=== PATIENT | male | born 1940 | race Caucasian/White ===

== ENCOUNTER → 2019-08-05 | Outpatient (CLI) | payer MEDICARE ==
--- NOTE | 2019-08-05 13:53 | US ---
EXAMINATION TYPE: US carotid duplex BILAT DATE OF EXAM: 08/05/2019 COMPARISON: NONE CLINICAL HISTORY: R42 dizziness, R09.89 Other specified symptoms and. no h/o stroke EXAM MEASUREMENTS: RIGHT: Peak Systolic Velocity (PSV) cm/sec ----- Right CCA: 50.2 ----- Right ICA: 87.6 ----- Right ECA: 77.1 ICA/CCA ratio: 1.7 RIGHT: End Diastole cm/sec ----- Right CCA: 9.1 ----- Right ICA: 19.5 ----- Right ECA: 9.9 LEFT: Peak Systolic Velocity (PSV) cm/sec ----- Left CCA: 52.8 ----- Left ICA: 80.1 ----- Left ECA: 90.6 ICA/CCA ratio: 1.5 LEFT: End Diastole cm/sec ----- Left CCA: 4.6 ----- Left ICA: 13.7 ----- Left ECA: 9.1 VERTEBRALS (direction of flow): Right Vertebral: Antegrade Left Vertebral: Antegrade Rhythm: Normal patient kept talking throughout exam Ruvalcaba scale images show mild eccentric plaque at carotid bulb level but are seen on the right. Velocit y measurements and ratios remain within normal limits and visualized portion of both internal carotid arteries. IMPRESSION: No hemodynamically significant stenosis in either internal carotid artery. Criteria for Assigning % of Stenosis / Diameter reduction (Estimation based on the indirect measurements of the internal carotid artery velocities (ICA PSV). 1. Normal (no stenosis)=ICA PSV < 125 cm/s: ratio < 2.0: ICA EDV<40 cm/s. 2. Less than 50% stenosis=ICA PSV < 125 cm/s: ratio < 2.0: ICA EDV<40 cm/s. 3. 50 to 69% stenosis=ICA PSV of 125 to 230 cm/s: ration 2.0 ? 4.0: ICA EDV 40-100 cm/s. 4. Greater than 70% stenosis to near occlusion= ICA PSV > 230 cm/s: ratio > 4.0: ICA EDV > 100 cm/s. 5. Near occlusion= ICA PSV velocities may be low or undetectable: variable ratio and ICA EDV. 6. Total occlusion=unable to detect flow.
--- NOTE | 2019-08-05 13:55 | CT ---
EXAMINATION TYPE: CT brain wo con DATE OF EXAM: 08/05/2019 HISTORY: dizziness CT DLP: 809.2 mGycm. Automated Exposure Control for Dose Reduction was Utilized. TECHNIQUE: CT scan of the head is performed without contrast. COMPARISON: None. FINDINGS: There is no acute intracranial hemorrhage or midline shift identified. There is diffuse v entricular and sulcal prominence consistent with diffuse cerebral and cerebellar atrophy. Low occipit al craniectomy defect is present. Posterior fossa 8 mm calcification noted. Some low attenuation in t he deep and periventricular white matter. Some bilateral basal ganglia calcification. The globes are intact and the visualized sinuses are clear. IMPRESSION: No acute intracranial hemorrhage or midline shift. There is fairly moderate diffuse cer ebellar and cerebral atrophy and mild chronic small vessel ischemic change with posterior lower surgi bridget change noted. Correlate the latter clinically.
== END | disposition home or self-care (01) ==
LOC: RADUSMAIN 12:48
PROVIDERS: ATTEND Family Medicine
DX: G31.9 Degenerative disease of nervous system, unspecified (principal); R90.89 Other abnormal findings on diagnostic imaging of central nervous system; R09.89 Other specified symptoms and signs involving the circulatory and respiratory systems; R42 Dizziness and giddiness
CPT/HCPCS: 70450; 93880

== ENCOUNTER 2023-03-01 07:03 | Emergency (ER) | payer MEDICARE ==
[2023-03-01] MEDS ORDERED: LIDOCAINE 2% GLYDO JELLY 11 ML APPL MUCOUS MEM ONE (07:16)
--- NOTE | 2023-03-01 07:34 | ED ---
General Adult HPI - General Chief complaint: ENT Stated complaint: live bug in ear Time Seen by Provider: 03/01/23 07:16 Source: patient Mode of arrival: ambulatory Limitations: no limitations - History of Present Illness Initial comments: Dictation was produced using [employer] dictation software. please excuse any grammatical, word or spelling errors. Chief Complaint: 82-year-old male with Bug in his left ear History of Present Illness: Patient is an 82-year-old male. He woke up this morning to let his pets out. He states that he stood outside of the bug flew into his left ear. He tried to have his family member remove it however was unsuccessful. The ROS documented in this emergency department record has been reviewed and confirmed by me. Those systems with pertinent positive or negative responses have been documented in the HPI. All other systems are other negative and/or noncontributory. - Related Data Allergies Allergy/AdvReac Type Severity Reaction Status Date / Time No Known Allergies Allergy Verified 03/01/23 07:13 Review of Systems ROS Statement: Those systems with pertinent positive or pertinent negative responses have been documented in the HPI. ROS Other: All systems not noted in ROS Statement are negative. Past Medical History Past Medical History: Hypertension History of Any Multi-Drug Resistant Organisms: None Reported Past Surgical History: No Surgical Hx Reported Past Psychological History: No Psychological Hx Reported Smoking Status: Never smoker Past Alcohol Use History: None Reported Past Drug Use History: None Reported General Exam - General Exam Comments Initial Comments: PHYSICAL EXAM: General Impression: Alert and oriented x3, not in acute distress HEENT: Normocephalic atraumatic, extra-ocular movements intact, pupils equal and reactive to light bilaterally, mucous membranes moist, insect in left ear Cardiovascular: Heart regular rate and rhythm Chest: Able to complete full sentences, no retractions, no tachypnea Musculoskeletal: no peripheral edema Motor: no focal deficits noted Neurological: CN II-XII grossly intact, no focal motor or sensory deficits noted Skin: Intact with no visualized rashes Psych: Normal affect and mood Limitations: no limitations Medical Decision Making - Medical Decision Making Was pt. sent in by a medical professional or institution (, PA, MAILROOM SUPERVISOR, urgent care, hospital, or residential...) When possible be specific @ -No Did you speak to anyone other than the patient for history (EMS, parent, family, police, friend...)? What history was obtained from this source @ -No Did you review nursing and triage notes (agree or disagree)? Why? @ -I reviewed and agree with nursing and triage notes Were old charts reviewed (outside hosp., previous admission, EMS record, old EKG, old radiological studies, urgent care reports/EKG's, residential records)? Report findings @ -No old charts were reviewed Differential Diagnosis (chest pain, altered mental status, abdominal pain women, abdominal pain men, vaginal bleeding, musculoskeletal, weakness, fever, dyspnea, syncope, headache, dizziness, GI bleed, back pain, seizure, CVA, palpatations, mental health)? @ -not applicable EKG interpreted by me (3pts min.). @ -None done X-rays interpreted by me (1pt min.). @ -None done CT interpreted by me (1pt min.). @ -None done U/S interpreted by me (1pt. min.). @ -None done What testing was considered but not performed or refused? (CT, X-rays, U/S, labs)? Why? @ -None What meds were considered but not given or refused? Why? @ -None Did you discuss the management of the patient with other professionals (professionals i.e. , PA, MAILROOM SUPERVISOR, lab, RT, psych nurse, hospice social worker, house servant, teacher, correctional officer chief, case packer and sealer)? Give summary @ -No Was smoking cessation discussed for >3mins.? @ -No Was critical care preformed (if so, how long)? @ -No Were there social determinants of health that impacted care today? How? (Homelessness, low income, unemployed, alcoholism, drug addiction, transportation, low edu. Level, literacy, decrease access to med. care, group home, rehab)? @ -No Was there de-escalation of care discussed even if they declined (Discuss DNR or withdrawal of care, Hospice)? DNR status @ -No What co-morbidities impacted this encounter? (DM, HTN, Smoking, COPD, CAD, Cancer, CVA, ARF, Chemo, Hep., AIDS, mental health diagnosis, sleep apnea, morbid obesity)? @ -None Was patient admitted / discharged? Hospital course, mention meds given and route, prescriptions, significant lab abnormalities, going to OR and other pertinent info. @ -82 Year-old male with left external ear insect. Viscous Lidocaine was injected through a catheter in the left ear to paralyze the insect. It was flushed and bug was removed. Patient discharged. Undiagnosed new problem with uncertain prognosis? @ -No Drug Therapy requiring intensive monitoring for toxicity (Heparin, Nitro, Insulin, Cardizem)? @ -No Were any procedures done? @ -No Diagnosis/symptom? Acute, or Chronic, or Acute on Chronic? Uncomplicated (without systemic symptoms) or Complicated (systemic symptoms)? @ - Left ear insect Side effects of treatment? @ -No Exacerbation, Progression, or Severe Exacerbation? @ -No Poses a threat to life or bodily function? How? (Chest pain, [place], [place], pneumonia, PE, COPD, DKA, ARF, appy, cholecystitis, CVA, Diverticulitis, Homicidal, Suicidal, threat to staff... and all critical care pts) @ -No Disposition Clinical Impression: Foreign body in ear Disposition: HOME SELF-CARE Condition: Good Instructions (If sedation given, give patient instructions): Ear Foreign Body (ED) Is patient prescribed a controlled substance at d/c from ED?: No Referrals: Luis Alberto Prince [Primary Care Provider] - 1-2 days Time of Disposition: 08:02
[2023-03-01 08:20] VITALS: BP 181/98; PULSE 58; RESP 18; TEMP 97.6
== END 2023-03-01 08:19 | disposition home or self-care (01) ==
LOC: EC 07:03
DX: T16.2XXA Foreign body in left ear, initial encounter (principal); I10 Essential (primary) hypertension; W45.8XXA Other foreign body or object entering through skin, initial encounter
CPT/HCPCS: 69200; 99283

== ENCOUNTER 2023-11-07 15:36 | Inpatient (IN) | payer MEDICARE ==
--- NOTE | 2023-11-07 16:13 | ED ---
General Adult HPI - General Stated complaint: Tremor Time Seen by Provider: 11/07/23 15:42 Source: patient, family, RN notes reviewed, old records reviewed Mode of arrival: ambulatory - History of Present Illness Initial comments: 83-year-old male presenting with fever chills. Urinary incontinence, urinary frequency. Symptoms began today. Patient had mild confusion which is resolved. No chest pain or abdominal pain. No cough. No focal numbness or weakness. - Related Data Home Medications Medication Instructions Recorded Confirmed Atorvastatin Calcium [Lipitor] 40 mg PO HS 11/07/23 11/07/23 Chlorthalidone [Hygroton] 12.5 mg PO DAILY 11/07/23 11/07/23 Docusate [Colace] 100 - 300 mg PO DAILY PRN 11/07/23 11/07/23 Furosemide [Lasix] 40 mg PO DAILY 11/07/23 11/07/23 Loratadine [Claritin] 10 mg PO DAILY 11/07/23 11/07/23 Metoprolol Tartrate [Lopressor] 50 mg PO BID 11/07/23 11/07/23 Sennosides/Docusate Sodium [Senna 2 - 4 tab PO DAILY PRN 11/07/23 11/07/23 Plus 8.6-50 mg Tablet] Warfarin [Coumadin] 7.5 mg PO DAILY 11/07/23 11/07/23 bisacodyL [Dulcolax] 5 - 15 mg PO DAILY PRN 11/07/23 11/07/23 lisinopriL [Zestril] 20 mg PO HS 11/07/23 11/07/23 Allergies Allergy/AdvReac Type Severity Reaction Status Date / Time No Known Allergies Allergy Verified 11/07/23 16:26 Review of Systems ROS Statement: Those systems with pertinent positive or pertinent negative responses have been documented in the HPI. ROS Other: All systems not noted in ROS Statement are negative. Past Medical History Past Medical History: Hypertension History of Any Multi-Drug Resistant Organisms: None Reported Past Surgical History: No Surgical Hx Reported Past Psychological History: No Psychological Hx Reported Smoking Status: Never smoker Past Alcohol Use History: None Reported Past Drug Use History: None Reported General Exam General appearance: alert, in no apparent distress Head exam: Present: atraumatic, normocephalic Eye exam: Present: normal appearance, other (Right pupil postsurgical) Neck exam: Present: normal inspection. Absent: tenderness, meningismus Respiratory exam: Present: normal lung sounds bilaterally. Absent: respiratory distress, wheezes, rales Cardiovascular Exam: Present: regular rate, normal rhythm GI/Abdominal exam: Present: soft. Absent: distended, tenderness, rebound Extremities exam: Present: normal inspection, normal capillary refill. Absent: pedal edema Neurological exam: Present: alert, oriented X3, CN II-XII intact. Absent: motor sensory deficit Psychiatric exam: Present: normal affect, normal mood Skin exam: Present: warm, dry, intact. Absent: cyanosis, diaphoretic Course Vital Signs 11/07/23 11/07/23 16:02 16:49 Temperature 102.4 F H 100.6 F H Pulse Rate 81 62 Respiratory 18 16 Rate Blood Pressure 128/64 132/77 O2 Sat by Pulse 95 96 Oximetry Medical Decision Making - Medical Decision Making Was pt. sent in by a medical professional or institution (, PA, ARMOR RECONNAISSANCE VEHICLE DRIVER, urgent care, hospital, or [facility]...) When possible be specific @ -No Did you speak to anyone other than the patient for history (EMS, parent, family, police, friend...)? What history was obtained from this source @ -No Did you review nursing and triage notes (agree or disagree)? Why? @ -I reviewed and agree with nursing and triage notes Were old charts reviewed (outside hosp., previous admission, EMS record, old EKG, old radiological studies, urgent care reports/EKG's, [facility] records)? Report findings @ -No old charts were reviewed Differential Weakness: Hypoglycemia, shock, sepsis, hyponatremia, anemia, infection, LA, ETOH, adverse medicine reaction, overdose, stroke, this is not meant to be an all-inclusive list. EKG interpreted by me (3pts min.). @Sinus rhythm rate of 89, PA interval 88, QRS duration 101, QTc [address] segment elevation, tremor artifact limiting assessment. X-rays interpreted by me (1pt min.). @Chest x-ray concerning for developing infiltrate CT interpreted by me (1pt min.). @ -None done U/S interpreted by me (1pt. min.). @ -None done What testing was considered but not performed or refused? (CT, X-rays, U/S, labs)? Why? @ -None What meds were considered but not given or refused? Why? @ -None Did you discuss the management of the patient with other professionals (professionals i.e. , PA, ARMOR RECONNAISSANCE VEHICLE DRIVER, lab, RT, psych nurse, high school social studies teacher, paraprofessional education assistant, teacher, staff air defense officer, case mgr)? Give summary @[facility] Was smoking cessation discussed for >3mins.? @ -No Was critical care preformed (if so, how long)? @ yes 35 min Were there social determinants of health that impacted care today? How? (Homelessness, low income, unemployed, alcoholism, drug addiction, transportat ion, low edu. Level, literacy, decrease access to med. care, correction, rehab)? @ -No Was there de-escalation of care discussed even if they declined (Discuss DNR or withdrawal of care, Hospice)? DNR status @ -No What co-morbidities impacted this encounter? (DM, HTN, Smoking, COPD, CAD, Cancer, CVA, ARF, Chemo, Hep., AIDS, mental health diagnosis, sleep apnea, morbid obesity)? @ -None Was patient admitted / discharged? Hospital course, mention meds given and route, prescriptions, significant lab abnormalities, going to OR and other pertinent info. @ -83-year-old male with fever, confusion, urinary frequency and urgency. Patient does have urinary tract infection, nitrate positive. Urine culture and blood cultures pending. He has an elevated white blood cell count of 21,000. Lactic is 3.5. He started on antibiotics awaiting culture results. He is covered for both pneumonia and UTI. I believe that his primary issue is urinary tract infection at this time. He will be admitted to [facility]. Undiagnosed new problem with uncertain prognosis? @ -No Drug Therapy requiring intensive monitoring for toxicity (Heparin, Nitro, Insulin, Cardizem)? @ -No Were any procedures done? @ -No Diagnosis/symptom? @UTI, pneumonia, sepsis Acute, or Chronic, or Acute on Chronic? @ -Default Uncomplicated (without systemic symptoms) or Complicated (systemic symptoms)? @ -Default Side effects of treatment? @ -No Exacerbation, Progression, or Severe Exacerbation? @ -No Poses a threat to life or bodily function? How? (Chest pain, [place], [place], pneumonia, PE, COPD, DKA, ARF, appy, cholecystitis, CVA, Diverticulitis, Homicidal, Suicidal, threat to staff... and all critical care pts) @ -[Yes, sepsis - Lab Data Result diagrams: 11/07/23 15:55 11/07/23 16:26 Lab Results 11/07/23 11/07/23 11/07/23 Range/Units 15:55 16:26 16:26 WBC 21.0 H (3.8-10.6) k/uL RBC 4.33 (4.30-5.90) m/uL Hgb 12.8 L (13.0-17.5) gm/dL Hct 39.6 (39.0-53.0) % MCV 91.4 (80.0-100.0) fL MCH 29.7 (25.0-35.0) pg MCHC 32.4 (31.0-37.0) g/dL RDW 15.5 (11.5-15.5) % Plt Count 226 (150-450) k/uL MPV 8.6 Neutrophils % 79 % Lymphocytes % 13 % Monocytes % 6 % Eosinophils % 0 % Basophils % 0 % Neutrophils # 16.5 H (1.3-7.7) k/uL Lymphocytes # 2.7 (1.0-4.8) k/uL Monocytes # 1.3 H (0-1.0) k/uL Eosinophils # 0.1 (0-0.7) k/uL Basophils # 0.1 (0-0.2) k/uL PT 18.3 H (10.0-12.5) sec INR 1.8 H (<1.2) APTT 34.7 H (22.0-30.0) sec Sodium 133 L (137-145) mmol/L Potassium 4.5 (3.5-5.1) mmol/L Chloride 103 (98-107) mmol/L Carbon Dioxide 18 L (22-30) mmol/L Anion Gap 12 mmol/L BUN 29 H (9-20) mg/dL Creatinine 1.05 (0.66-1.25) mg/dL Est GFR (CKD-EPI)AfAm 76 (>60 ml/min/1.73 sqM) Est GFR (CKD-EPI)NonAf 66 (>60 ml/min/1.73 sqM) Glucose 131 H (74-99) mg/dL Plasma Lactic Acid Richie (0.7-2.0) mmol/L Calcium 9.0 (8.4-10.2) mg/dL Magnesium 1.7 (1.6-2.3) mg/dL Total Bilirubin 1.3 (0.2-1.3) mg/dL AST 32 (17-59) U/L ALT 20 (4-49) U/L Alkaline Phosphatase 46 (38-126) U/L Total Protein 7.7 (6.3-8.2) g/dL Albumin 4.1 (3.5-5.0) g/dL Urine Color Urine Appearance (Clear) Urine pH (5.0-8.0) Ur Specific [place] (1.001-1.035) Urine Protein (Negative) Urine Glucose (UA) (Negative) Urine Ketones (Negative) Urine Blood (Negative) Urine Nitrite (Negative) Urine Bilirubin (Negative) Urine Urobilinogen (<2.0) mg/dL Ur Leukocyte Esterase (Negative) Urine RBC (0-5) /hpf Urine WBC (0-5) /hpf Urine Bacteria (None) /hpf Urine Mucus (None) /hpf 11/07/23 11/07/23 Range/Units 16:26 16:26 WBC (3.8-10.6) k/uL RBC (4.30-5.90) m/uL Hgb (13.0-17.5) gm/dL Hct (39.0-53.0) % MCV (80.0-100.0) fL MCH (25.0-35.0) pg MCHC (31.0-37.0) g/dL RDW (11.5-15.5) % Plt Count (150-450) k/uL MPV Neutrophils % % Lymphocytes % % Monocytes % % Eosinophils % % Basophils % % Neutrophils # (1.3-7.7) k/uL Lymphocytes # (1.0-4.8) k/uL Monocytes # (0-1.0) k/uL Eosinophils # (0-0.7) k/uL Basophils # (0-0.2) k/uL PT (10.0-12.5) sec INR (<1.2) APTT (22.0-30.0) sec Sodium (137-145) mmol/L Potassium (3.5-5.1) mmol/L Chloride (98-107) mmol/L Carbon Dioxide (22-30) mmol/L Anion Gap mmol/L BUN (9-20) mg/dL Creatinine (0.66-1.25) mg/dL Est GFR (CKD-EPI)AfAm (>60 ml/min/1.73 sqM) Est GFR (CKD-EPI)NonAf (>60 ml/min/1.73 sqM) Glucose (74-99) mg/dL Plasma Lactic Acid Richie 3.5 H* (0.7-2.0) mmol/L Calcium (8.4-10.2) mg/dL Magnesium (1.6-2.3) mg/dL Total Bilirubin (0.2-1.3) mg/dL AST (17-59) U/L ALT (4-49) U/L Alkaline Phosphatase (38-126) U/L Total Protein (6.3-8.2) g/dL Albumin (3.5-5.0) g/dL Urine Color Yellow Urine Appearance Cloudy (Clear) Urine pH 6.0 (5.0-8.0) Ur Specific [place] 1.025 (1.001-1.035) Urine Protein 2+ H (Negative) Urine Glucose (UA) Negative (Negative) Urine Ketones Negative (Negative) Urine Blood Moderate H (Negative) Urine Nitrite Positive (Negative) Urine Bilirubin Negative (Negative) Urine Urobilinogen <2.0 (<2.0) mg/dL Ur Leukocyte Esterase Large H (Negative) Urine RBC 30 H (0-5) /hpf Urine WBC 117 H (0-5) /hpf Urine Bacteria Rare H (None) /hpf Urine Mucus Moderate H (None) /hpf Critical Care Time Critical Care Time: Yes Total Critical Care Time: 35 Disposition Clinical Impression: Urinary tract infection, Sepsis Disposition: ADMITTED IP TO THIS HOSP Condition: Stable Is patient prescribed a controlled substance at d/c from ED?: No Referrals: Luis Alberto Prince [Primary Care Provider] - 1-2 days Time of Disposition: 17:44
[2023-11-07] MEDS: ACETAMINOPHEN TAB 500 MG TAB PO STA (16:42)
[2023-11-07] MEDS: SODIUM CHLORIDE 0.9% 1,000 ML IV STA (16:43)
[2023-11-07 16:50] LABS: Basophils # (A) 0.1 k/uL (0-0.2); Basophils % (A) 0 %; Eosinophils # (A) 0.1 k/uL (0-0.7); Eosinophils % (A) 0 %; HCT 39.6 % (39.0-53.0); HGB 12.8 gm/dL (13.0-17.5); Lymphocytes # (A) 2.7 k/uL (1.0-4.8); Lymphocytes % (A) 13 %; MCH 29.7 pg (25.0-35.0); MCHC 32.4 g/dL (31.0-37.0); MCV 91.4 fL (80.0-100.0); Mean Platelet Volume 8.6; Monocytes # (A) 1.3 k/uL (0-1.0); Monocytes % (A) 6 %; Neutrophils # (A) 16.5 k/uL (1.3-7.7); Neutrophils % (A) 79 %; Platelet Count 226 k/uL (150-450); RBC 4.33 m/uL (4.30-5.90); RDW 15.5 % (11.5-15.5)
[2023-11-07 16:58] LABS: ALT 20 U/L (4-49); AST 32 U/L (17-59); African American GFR (CKD) 76 (>60 ml/min/1.73 sqM); Albumin 4.1 g/dL (3.5-5.0); Alkaline Phosphatase 46 U/L (38-126); Anion Gap 12 mmol/L; Blood Urea Nitrogen 29 mg/dL (9-20); Carbon Dioxide 18 mmol/L (22-30); Chloride 103 mmol/L (98-107); Glucose 131 mg/dL (74-99); INR 1.8 (<1.2); Magnesium 1.7 mg/dL (1.6-2.3); Non-African American GFR(CKD) 66 (>60 ml/min/1.73 sqM); Partial Thromboplastin Time 34.7 sec (22.0-30.0); Potassium 4.5 mmol/L (3.5-5.1); Prothrombin Time 18.3 sec (10.0-12.5); Sodium 133 mmol/L (137-145); Total Bilirubin 1.3 mg/dL (0.2-1.3); Total Protein 7.7 g/dL (6.3-8.2)
[2023-11-07 17:12] LABS: Appearance,Urine Cloudy (Clear); Bacteria,Urine Rare /hpf; Bilirubin,Urine Negative (Negative); Blood,Urine Moderate (Negative); Color,Urine Yellow; Glucose,Urine (UA) Negative (Negative); Ketones,Urine Negative (Negative); Leukocyte Esterase,Urine Large (Negative); Mucus,Urine Moderate /hpf; Nitrite,Urine Positive (Negative); Protein,Urine 2+ (Negative); RBC,Urine 30 /hpf (0-5); Specific Gravity,Urine 1.025 (1.001-1.035); Urobilinogen,Urine <2.0 mg/dL (<2.0); WBC,Urine 117 /hpf (0-5)
--- NOTE | 2023-11-07 17:25 | XR ---
EXAMINATION TYPE: XR chest 2V DATE OF EXAM: 11/07/2023 COMPARISON: None INDICATION: Weakness TECHNIQUE: Frontal and lateral views of the chest are obtained. FINDINGS: The heart size is normal. The pulmonary vasculature is normal. Mild infiltrates through the right upper lobe. Correlate for atelectasis and pneumonia. Some linear o pacities at the left base. Correlate for subsegmental atelectasis.. IMPRESSION: 1. Right upper lobe infiltrate. Correlate for atelectasis or pneumonia. 2. Subsegmental atelectasis left base
[2023-11-07] MEDS ORDERED: ACETAMINOPHEN TAB 325 MG TAB PO PRN (17:44)
[2023-11-07] MEDS ORDERED: NALOXONE 0.4 MG/ML 1 ML VIAL IV PRN (17:44)
[2023-11-07] MEDS: AZITHROMYCIN 500 MG in SODIUM CHLORIDE 0.9% 250 ML IVPB STA (18:27)
[2023-11-07] MEDS: SODIUM CHLORIDE 0.9% 1,000 ML IV SCH (18:28)
[2023-11-08] MEDS ORDERED: WARFARIN 7.5 MG TAB PO SCH (00:03)
[2023-11-08] MEDS ORDERED: DOCUSATE 100 MG CAP PO PRN (00:03)
[2023-11-08] MEDS ORDERED: WARFARIN 1.25 MG TAB PO ONE (00:15)
[2023-11-08] MEDS ORDERED: WARFARIN 7.5 MG TAB PO ONE (00:15)
[2023-11-08] MEDS: METOPROLOL TARTRATE 50 MG TAB PO SCH (00:31)
[2023-11-08] MEDS: ATORVASTATIN 40 MG TAB PO SCH (00:31)
[2023-11-08] MEDS: WARFARIN 2 MG TAB PO ONE (00:31)
[2023-11-08 12:35] LABS: INR 1.53 sec (0.93-1.11); Prothrombin Time 16.1 sec (9.9-11.9)
[2023-11-08] MEDS: CHLORTHALIDONE 25 MG TAB PO SCH (13:17)
[2023-11-08] MEDS: lisinopriL 20 MG TAB PO SCH (13:17)
--- NOTE | 2023-11-08 13:51 | P.HPIM ---
History of Present Illness H&P Date: 11/08/23 History of present illness; patient is a 83-year-old gentleman past medical history significant for hypertension, hyperlipidemia, atrial fibrillation who presented to the ER for increasing confusion fever and chills. Patient was all right 1 day back when he started noticing that he was having fevers associated with chills. Family also noted the patient was getting more confused. Patient was also having increased frequency of urination with incontinence. There was no complaint of hematuria. Denied any burning micturition. Denied any nausea or vomiting. There was no complaint of chest pain or shortness of breath. Denied any lightheaded or dizziness. Because of the symptoms, patient presented the ER Initial lab work done in the ER showed WBC 21, hemoglobin 12.8, platelet count 226, sodium 133, potassium 4.5, BUN 29, creatinine 1.05, lactate 3.5, UA done showed urine nitrite positive, leukocyte esterase large amount, urine WBC 117 Influenza A not detected Influenza B not detected RSV not detected COVID-19 detected EKG done in the ER showed heart rate of 89 , no ST segment elevation or depression seen, no T-wave inversions seen. Chest x-ray done in the ER right upper lobe infiltrate Patient admitted to internal medicine service REVIEW OF SYSTEMS: CONSTITUTIONAL: As mentioned HPI HEENT: No recent visual problems or hearing problems. Denied any sore throat. CARDIOVASCULAR: No chest pain, orthopnea, PND, no palpitations, no syncope. PULMONARY: No shortness of breath, no cough, no hemoptysis. GASTROINTESTINAL: No diarrhea, no nausea, no vomiting, no abdominal pain. NEUROLOGICAL: No headaches, no weakness, no numbness. HEMATOLOGICAL: Denies any bleeding or petechiae. GENITOURINARY: Denies any burning micturition, frequency, or urgency. MUSCULOSKELETAL/RHEUMATOLOGICAL: Denies any joint pain, swelling, or any muscle pain. ENDOCRINE: Denies any polyuria or polydipsia. The rest of the 14-point review of systems is negative. PHYSICAL EXAMINATION: GENERAL: The patient is alert and oriented x3, not in any acute distress. Well developed, well nourished. HEENT: Pupils are round and equally reacting to light. EOMI. No scleral icterus. No conjunctival pallor. Normocephalic, atraumatic. No pharyngeal erythema. No thyromegaly. CARDIOVASCULAR: S1 and S2 present. No murmurs, rubs, or gallops. PULMONARY: Chest is clear to auscultation, no wheezing or crackles. ABDOMEN: Soft, nontender, nondistended, normoactive bowel sounds. No palpable organomegaly. MUSCULOSKELETAL: No joint swelling or deformity. EXTREMITIES: No cyanosis, clubbing, or pedal edema. NEUROLOGICAL: Gross neurological examination did not reveal any focal deficits. SKIN: No rashes. Assessment and plan UTI Sepsis Lactic acidosis COVID-19 positive Hypertension hyperlipidemia Chronic Coumadin use Monitor vital signs Monitor CBC Monitor CMP Continue telemetry monitoring Ordered blood cultures Ordered urine cultures continue IV fluids continue IV Rocephin Continue COVID-19 isolation Consult ID Resume Home meds Labs and medication were reviewed.. Continue same treatment. Continue with symptomatic treatment. Resume home medication. Monitor labs and vitals. DVT and GI prophylaxis. Further recommendations as per clinical course of the patient Dictation was produced using [employer] dictation software. please excuse any grammatical, word or spelling errors. Past Medical History Past Medical History: Hyperlipidemia, Hypertension Additional Past Medical History / Comment(s): CABGx4 2009, mechanical valvue Mitral History of Any Multi-Drug Resistant Organisms: None Reported Past Surgical History: No Surgical Hx Reported Additional Past Surgical History / Comment(s): Brain tumor removal at age 21, artificial valve 2011, bypass 2009, Spinal shunt Past Anesthesia/Blood Transfusion Reactions: No Reported Reaction Past Psychological History: No Psychological Hx Reported Smoking Status: Never smoker Past Alcohol Use History: None Reported Past Drug Use History: None Reported Medications and Allergies Home Medications Medication Instructions Recorded Confirmed Type Atorvastatin Calcium [Lipitor] 40 mg PO HS 11/07/23 11/07/23 History Chlorthalidone [Hygroton] 12.5 mg PO DAILY 11/07/23 11/07/23 History Docusate [Colace] 100 - 300 mg PO DAILY PRN 11/07/23 11/07/23 History Loratadine [Claritin] 10 mg PO DAILY 11/07/23 11/07/23 History Metoprolol Tartrate [Lopressor] 50 mg PO BID 11/07/23 11/07/23 History Sennosides/Docusate Sodium [Senna 2 - 4 tab PO DAILY PRN 11/07/23 11/07/23 History Plus 8.6-50 mg Tablet] Warfarin [Coumadin] 7.5 mg PO HS 11/07/23 11/07/23 History bisacodyL [Dulcolax] 5 - 15 mg PO DAILY PRN 11/07/23 11/07/23 History lisinopriL [Zestril] 20 mg PO DAILY 11/07/23 11/07/23 History Allergies Allergy/AdvReac Type Severity Reaction Status Date / Time No Known Allergies Allergy Verified 11/07/23 16:26 Physical Exam Vitals: Vital Signs Temp Pulse Pulse Resp BP BP Pulse Ox 11/08/23 08:00 98.7 F 96 17 150/67 95 11/08/23 02:00 98.3 F 81 153/65 96 11/07/23 21:13 60 18 117/64 97 11/07/23 20:00 97.6 F 65 118/55 100 11/07/23 19:30 62 18 115/60 96 11/07/23 17:54 98.4 F 66 16 114/56 94 L 11/07/23 17:47 99.1 F 63 18 114/56 95 11/07/23 16:49 100.6 F H 62 16 132/77 96 11/07/23 16:02 102.4 F H 81 18 128/64 95 Intake and Output 11/07/23 11/08/23 11/08/23 22:59 06:59 14:59 Output Total 300 Balance -300 Output: Urine 300 Other: Voiding Method Urinal Incontinent External Catheter # Voids 2 Weight 74.843 kg 74.843 kg Results CBC & Chem 7: 11/07/23 15:55 11/07/23 16:26 Labs: Abnormal Lab Results - Last 24 Hours (Table) 11/07/23 11/07/23 11/07/23 Range/Units 15:55 16:26 16:26 WBC 21.0 H (3.8-10.6) k/uL Hgb 12.8 L (13.0-17.5) gm/dL Neutrophils # 16.5 H (1.3-7.7) k/uL Monocytes # 1.3 H (0-1.0) k/uL PT 18.3 H (10.0-12.5) sec INR 1.8 H (<1.2) APTT 34.7 H (22.0-30.0) sec Sodium 133 L (137-145) mmol/L Carbon Dioxide 18 L (22-30) mmol/L BUN 29 H (9-20) mg/dL Glucose 131 H (74-99) mg/dL Plasma Lactic Acid Richie (0.7-2.0) mmol/L Urine Protein (Negative) Urine Blood (Negative) Ur Leukocyte Esterase (Negative) Urine RBC (0-5) /hpf Urine WBC (0-5) /hpf Urine Bacteria (None) /hpf Urine Mucus (None) /hpf SARS-CoV-2 (PCR) (Not Detectd) 11/07/23 11/07/23 11/07/23 Range/Units 16:26 16:26 16:26 WBC (3.8-10.6) k/uL Hgb (13.0-17.5) gm/dL Neutrophils # (1.3-7.7) k/uL Monocytes # (0-1.0) k/uL PT (10.0-12.5) sec INR (<1.2) APTT (22.0-30.0) sec Sodium (137-145) mmol/L Carbon Dioxide (22-30) mmol/L BUN (9-20) mg/dL Glucose (74-99) mg/dL Plasma Lactic Acid Richie 3.5 H* (0.7-2.0) mmol/L Urine Protein 2+ H (Negative) Urine Blood Moderate H (Negative) Ur Leukocyte Esterase Large H (Negative) Urine RBC 30 H (0-5) /hpf Urine WBC 117 H (0-5) /hpf Urine Bacteria Rare H (None) /hpf Urine Mucus Moderate H (None) /hpf SARS-CoV-2 (PCR) Detected A (Not Detectd) Thrombosis Risk Factor Assmnt - Choose All That Apply Any of the Below Risk Factors Present?: No Other Risk Factors: No Each Risk Factor Represents 3 Points: Age 75 years or older Other congenital or acquired thrombophilia - If yes, enter type in comment: No Thrombosis Risk Factor Assessment Total Risk Factor Score: 3 Thrombosis Risk Factor Assessment Level: Very Low Risk
[2023-11-08] MEDS: WARFARIN 3 MG TAB PO ONE (17:56)
--- NOTE | 2023-11-08 22:31 | P.CONS ---
History of Present Illness - Reason for Consult Consult date: 11/08/23 - History of Present Illness Patient is a 83-year-old male past medical history significant for hypertension hyperlipidemia coronary artery disease mechanical mitral valve and also have a history of brain tumor patient was brought into the hospital for evaluation of fever chills urinary incontinence and frequency and this patient symptom started the day of presentation to the hospital patient was noted to be mildly confused patient denies having any headache or URI symptoms no chest pain or shortness of breath no cough no nausea vomiting abdominal pain or any diarrhea patient on presentation to the hospital did have a temperature of 102.4 F patient was not tachycardic hypotensive or hypoxic and no need for supplemental oxygen he did have a white count 21,000 with a left shift creatinine 1.05 lactic acid was elevated urine was positive patient also tested positive for COVID-19 influenza and RSV was negative chest x-ray right upper lobe infiltrate correlate for atelectasis or pneumonia patient has been started on Rocephin 2 g daily admit to the hospital infectious disease was consulted for further management of antibiotic therapy Past Medical History Past Medical History: Hyperlipidemia, Hypertension Additional Past Medical History / Comment(s): CABGx4 2009, mechanical valvue Mitral History of Any Multi-Drug Resistant Organisms: None Reported Past Surgical History: No Surgical Hx Reported Additional Past Surgical History / Comment(s): Brain tumor removal at age 21, artificial valve 2011, bypass 2009, Spinal shunt Past Anesthesia/Blood Transfusion Reactions: No Reported Reaction Past Psychological History: No Psychological Hx Reported Smoking Status: Never smoker Past Alcohol Use History: None Reported Past Drug Use History: None Reported Medications and Allergies Home Medications Medication Instructions Recorded Confirmed Type Atorvastatin Calcium [Lipitor] 40 mg PO HS 11/07/23 11/07/23 History Chlorthalidone [Hygroton] 12.5 mg PO DAILY 11/07/23 11/07/23 History Docusate [Colace] 100 - 300 mg PO DAILY PRN 11/07/23 11/07/23 History Loratadine [Claritin] 10 mg PO DAILY 11/07/23 11/07/23 History Metoprolol Tartrate [Lopressor] 50 mg PO BID 11/07/23 11/07/23 History Sennosides/Docusate Sodium [Senna 2 - 4 tab PO DAILY PRN 11/07/23 11/07/23 History Plus 8.6-50 mg Tablet] Warfarin [Coumadin] 7.5 mg PO HS 11/07/23 11/07/23 History bisacodyL [Dulcolax] 5 - 15 mg PO DAILY PRN 11/07/23 11/07/23 History lisinopriL [Zestril] 20 mg PO DAILY 11/07/23 11/07/23 History Allergies Allergy/AdvReac Type Severity Reaction Status Date / Time No Known Allergies Allergy Verified 11/07/23 16:26 Physical Exam Vitals: Vital Signs Temp Pulse Pulse Resp BP BP Pulse Ox 11/08/23 08:00 98.7 F 96 17 150/67 95 11/08/23 02:00 98.3 F 81 153/65 96 11/07/23 21:13 60 18 117/64 97 11/07/23 20:00 97.6 F 65 118/55 100 11/07/23 19:30 62 18 115/60 96 11/07/23 17:54 98.4 F 66 16 114/56 94 L 11/07/23 17:47 99.1 F 63 18 114/56 95 11/07/23 16:49 100.6 F H 62 16 132/77 96 11/07/23 16:02 102.4 F H 81 18 128/64 95 Intake and Output 11/07/23 11/08/23 11/08/23 22:59 06:59 14:59 Output Total 300 Balance -300 Output: Urine 300 Other: Voiding Method Urinal Incontinent External Catheter # Voids 2 Weight 74.843 kg 74.843 kg Results CBC & Chem 7: 11/07/23 15:55 11/07/23 16:26 Labs: Abnormal Lab Results - Last 24 Hours (Table) 11/07/23 11/07/23 11/07/23 Range/Units 15:55 16:26 16:26 WBC 21.0 H (3.8-10.6) k/uL Hgb 12.8 L (13.0-17.5) gm/dL Neutrophils # 16.5 H (1.3-7.7) k/uL Monocytes # 1.3 H (0-1.0) k/uL PT 18.3 H (10.0-12.5) sec INR 1.8 H (<1.2) APTT 34.7 H (22.0-30.0) sec Sodium 133 L (137-145) mmol/L Carbon Dioxide 18 L (22-30) mmol/L BUN 29 H (9-20) mg/dL Glucose 131 H (74-99) mg/dL Plasma Lactic Acid Richie (0.7-2.0) mmol/L Urine Protein (Negative) Urine Blood (Negative) Ur Leukocyte Esterase (Negative) Urine RBC (0-5) /hpf Urine WBC (0-5) /hpf Urine Bacteria (None) /hpf Urine Mucus (None) /hpf SARS-CoV-2 (PCR) (Not Detectd) 11/07/23 11/07/23 11/07/23 Range/Units 16:26 16:26 16:26 WBC (3.8-10.6) k/uL Hgb (13.0-17.5) gm/dL Neutrophils # (1.3-7.7) k/uL Monocytes # (0-1.0) k/uL PT (10.0-12.5) sec INR (<1.2) APTT (22.0-30.0) sec Sodium (137-145) mmol/L Carbon Dioxide (22-30) mmol/L BUN (9-20) mg/dL Glucose (74-99) mg/dL Plasma Lactic Acid Richie 3.5 H* (0.7-2.0) mmol/L Urine Protein 2+ H (Negative) Urine Blood Moderate H (Negative) Ur Leukocyte Esterase Large H (Negative) Urine RBC 30 H (0-5) /hpf Urine WBC 117 H (0-5) /hpf Urine Bacteria Rare H (None) /hpf Urine Mucus Moderate H (None) /hpf SARS-CoV-2 (PCR) Detected A (Not Detectd) Assessment and Plan Plan: 1patient presented hospital with sepsis in this patient noted to have a fever elevated white count sources including antibiotic positive UA and urinary symptom suggestive of symptomatic UTI likely from enteric gram-negative pathogen 2-patient also tested positive for COVID-19 however the patient did not have significant respiratory symptoms and chest x-ray has been negative not behaving as COVID-19 pneumonia and treatment is mostly supportive 3did have abnormality on the chest x-ray but no respiratory symptoms no hypoxemia possible atelectasis rather than pneumonia 4Rocephin 2 g daily should provide adequate antibiotic coverage for underlying UTI We will follow on clinical condition and cultures to further adjust medication if needed Thank you for this consultation we will follow the patient along with you Dictation was produced using [employer] dictation software. please excuse any grammatical, word or spelling errors. Time with Patient: Greater than 30
[2023-11-09 09:28] LABS: Basophils # (A) 0.04 X 10*3/uL (0.00-0.10); Basophils % (A) 0.3 %; Eosinophils # (A) 0.14 X 10*3/uL (0.04-0.35); Eosinophils % (A) 1.1 %; HGB 11.7 g/dL (13.0-17.0); Lymphocytes % (A) 10.2 %; MCH 29.6 pg (27.0-32.0); MCHC 32.5 g/dL (32.0-37.0); MCV 91.1 FL (80.0-97.0); Mean Platelet Volume 10.7 FL (9.5-12.2); Monocytes % (A) 5.5 %; NRBC Per 100 WBC 0 X 10*3/uL (0.00-0.01); Neutrophils # (A) 10.53 X 10*3/uL (1.80-7.70); Neutrophils % (A) 82.6 %; Platelet Count 178 X 10*3/uL (140-440); RBC 3.95 X 10*6/uL (4.40-5.60); RDW 15.9 % (11.5-14.5); WBC 12.75 X 10*3/uL (4.50-10.00)
[2023-11-09 09:42] LABS: ALT 50 U/L (10-49); AST 166 U/L (14-35); Albumin 3.3 g/dL (3.8-4.9); Albumin/Globulin Ratio 1.18 Ratio (1.60-3.17); Alkaline Phosphatase 38 U/L (41-126); BUN/Creat Ratio 21.33 Ratio (12.00-20.00); Blood Urea Nitrogen 12.8 mg/dL (9.0-27.0); Calcium 8.4 mg/dL (8.7-10.3); Carbon Dioxide 19.6 mmol/L (21.6-31.8); Chloride 103 mmol/L (96-109); Globulin 2.8 g/dL (1.6-3.3); Glucose 93 mg/dL (70-110); Potassium 3.2 mmol/L (3.5-5.5); Sodium 136 mmol/L (135-145); Total Bilirubin 0.5 mg/dL (0.3-1.2); Total Protein 6.1 g/dL (6.2-8.2)
[2023-11-09 10:15] LABS: INR 1.71 sec (0.93-1.11); Prothrombin Time 17.8 sec (9.9-11.9)
[2023-11-09] MEDS: POTASSIUM CHLORIDE ER 20 MEQ TAB.ER PO STA (12:36)
[2023-11-09] MEDS: LACTOBACILLUS ACIDOPHILUS/PECT 1 EACH CAPSULE PO SCH (12:36)
--- NOTE | 2023-11-09 12:57 | P.PN ---
Subjective Progress Note Date: 11/09/23 patient is a 83-year-old gentleman past medical history significant for hypertension, hyperlipidemia, atrial fibrillation who presented to the ER for increasing confusion fever and chills. Patient was all right 1 day back when he started noticing that he was having fevers associated with chills. Family also noted the patient was getting more confused. Patient was also having increased frequency of urination with incontinence. There was no complaint of hematuria. Denied any burning micturition. Denied any nausea or vomiting. There was no complaint of chest pain or shortness of breath. Denied any lightheaded or dizziness. Because of the symptoms, patient presented the ER Initial lab work done in the ER showed WBC 21, hemoglobin 12.8, platelet count 226, sodium 133, potassium 4.5, BUN 29, creatinine 1.05, lactate 3.5, UA done showed urine nitrite positive, leukocyte esterase large amount, urine WBC 117 Influenza A not detected Influenza B not detected RSV not detected COVID-19 detected EKG done in the ER showed heart rate of 89 , no ST segment elevation or depression seen, no T-wave inversions seen. Chest x-ray done in the ER right upper lobe infiltrate Patient admitted to internal medicine service 11/08. Patient seen and examined. Lab work done this morning showed WBC 12.75, hemoglobin 11.7, platelet count 178,. Still complaining general weakness, states he feels better than yesterday REVIEW OF SYSTEMS: CONSTITUTIONAL: No fever, no malaise,. CARDIOVASCULAR: No chest pain, no palpitations, no syncope. PULMONARY: No shortness of breath, no cough, GASTROINTESTINAL: No diarrhea, no nausea, no vomiting, no abdominal pain. NEUROLOGICAL: No headaches, no weakness, PHYSICAL EXAMINATION: GENERAL: The patient is alert and oriented x3, not in any acute distress. Well developed, well nourished. HEENT: Pupils are round and equally reacting to light. EOMI. No scleral icterus. No conjunctival pallor. Normocephalic, atraumatic. No pharyngeal erythema. No thyromegaly. CARDIOVASCULAR: S1 and S2 present. No murmurs, rubs, or gallops. PULMONARY: Chest is clear to auscultation, no wheezing or crackles. ABDOMEN: Soft, nontender, nondistended, normoactive bowel sounds. No palpable organomegaly. MUSCULOSKELETAL: No joint swelling or deformity. EXTREMITIES: No cyanosis, clubbing, or pedal edema. NEUROLOGICAL: Gross neurological examination did not reveal any focal deficits. SKIN: No rashes. Assessment and plan UTI Sepsis Lactic acidosis COVID-19 positive Hypertension hyperlipidemia Chronic Coumadin use Monitor vital signs Monitor CBC Monitor CMP Continue telemetry monitoring Follow-up on blood cultures Follow-up on urine cultures DC fluids continue IV Rocephin Continue COVID-19 isolation ID following Labs and medication were reviewed.. Continue same treatment. Continue with symptomatic treatment. Resume home medication. Monitor labs and vitals. DVT and GI prophylaxis. Further recommendations as per clinical course of the patient Dictation was produced using [employer] dictation software. please excuse any grammatical, word or spelling errors. Objective - Vital Signs Vital signs: Vital Signs Temp 97.9 F 11/09/23 08:00 Pulse 90 11/09/23 08:00 Resp 17 11/09/23 08:00 BP 179/89 11/09/23 08:00 Pulse Ox 95 11/09/23 08:00 FiO2 21 11/09/23 07:54 Intake & Output 11/08/23 11/09/23 11/09/23 18:59 06:59 18:59 Output Total 400 750 Balance -400 -750 Output: Urine 400 750 Other: Voiding Method Incontinent Incontinent Incontinent External Catheter External Catheter External Catheter # Bowel Movements 1 2 - Labs CBC & Chem 7: 11/09/23 03:54 11/09/23 03:54 Labs: Abnormal Lab Results - Last 24 Hours (Table) 11/08/23 11/09/23 Range/Units 06:26 03:54 WBC 12.75 H (4.50-10.00) X 10*3/uL RBC 3.95 L (4.40-5.60) X 10*6/uL Hgb 11.7 L (13.0-17.0) g/dL Hct 36.0 L (39.6-50.0) % RDW 15.9 H (11.5-14.5) % Neutrophils # 10.53 H (1.80-7.70) X 10*3/uL PT 16.1 H (9.9-11.9) sec INR 1.53 H (0.93-1.11) sec Microbiology - Last 24 Hours (Table) 11/07/23 16:00 Blood Culture - Preliminary Blood 11/07/23 16:15 Blood Culture - Preliminary Blood 11/07/23 16:26 Urine Culture - Preliminary Urine,Voided Gram Neg Bacilli
[2023-11-09] MEDS ORDERED: [UNRECOGNIZED DRUG - OTHER] PO PRN (14:23)
[2023-11-09] MEDS ORDERED: HYDROCODONE PO PRN (14:23)
[2023-11-09] MEDS ORDERED: ACETAMINOPHEN PO PRN (14:23)
[2023-11-09] MEDS: HYDROcodone/APAP 10-325MG 1 EACH TAB PO PRN (14:37)
[2023-11-09] MEDS: CHOLESTYRAMINE (WITH SUGAR) 4 GM PACKET PO SCH (16:51)
[2023-11-09] MEDS: WARFARIN 3 MG TAB PO ONE (16:51)
--- NOTE | 2023-11-09 18:45 | P.PN ---
Subjective Progress Note Date: 11/09/23 Principal diagnosis: Reason for follow-up is UTI and COVID-19 Patient is a 83-year-old male past medical history significant for hypertension hyperlipidemia coronary artery disease mechanical mitral valve and also have a history of brain tumor patient was brought into the hospital for evaluation of fever chills urinary incontinence and frequency and the patient has been diagnosed with a UTI also tested positive for COVID-19 with patient not hypoxic. On today's evaluation that is 11/09/2023,the patient did have resolution of his fever patient is breathing comfortably on room air denies any chest pain or shortness with occasional cough no nausea vomiting abdominal pain is complaining of some diarrhea. Patient white count is down to 12.75, creatinine 0.6 stool for C. difficile is negative urine is growing gram-negative bacilli Objective - Vital Signs Vital signs: Vital Signs Temp 98.4 F 11/09/23 14:25 Pulse 62 11/09/23 14:25 Resp 17 11/09/23 14:25 BP 145/60 11/09/23 14:25 Pulse Ox 97 11/09/23 14:25 FiO2 21 11/09/23 07:54 Intake & Output 11/08/23 11/09/23 11/09/23 18:59 06:59 18:59 Intake Total 600 Output Total 400 750 700 Balance -400 -750 -100 Intake: Oral 600 Output: Urine 400 750 700 Other: Voiding Method Incontinent Incontinent Incontinent External Catheter External Catheter External Catheter # Bowel Movements 1 2 - Exam GENERAL DESCRIPTION: An elderly male lying in bed in no distress RESPIRATORY SYSTEM: Unlabored breathing , decreased breath sounds at bases HEART: S1 S2 regular rate and rhythm , ABDOMEN: Soft , no tenderness EXTREMITIES: No edema feet - Labs CBC & Chem 7: 11/09/23 03:54 11/09/23 03:54 Labs: Abnormal Lab Results - Last 24 Hours (Table) 11/09/23 11/09/23 11/09/23 Range/Units 03:54 03:54 03:54 WBC 12.75 H (4.50-10.00) X 10*3/uL RBC 3.95 L (4.40-5.60) X 10*6/uL Hgb 11.7 L (13.0-17.0) g/dL Hct 36.0 L (39.6-50.0) % RDW 15.9 H (11.5-14.5) % Neutrophils # 10.53 H (1.80-7.70) X 10*3/uL PT 17.8 H (9.9-11.9) sec INR 1.71 H (0.93-1.11) sec Potassium 3.2 L (3.5-5.5) mmol/L Carbon Dioxide 19.6 L (21.6-31.8) mmol/L Anion Gap 13.40 H (4.00-12.00) mmol/L BUN/Creatinine Ratio 21.33 H (12.00-20.00) Ratio Calcium 8.4 L (8.7-10.3) mg/dL AST 166 H (14-35) U/L ALT 50 H (10-49) U/L Alkaline Phosphatase 38 L (41-126) U/L Total Protein 6.1 L (6.2-8.2) g/dL Albumin 3.3 L (3.8-4.9) g/dL Albumin/Globulin Ratio 1.18 L (1.60-3.17) Ratio Microbiology - Last 24 Hours (Table) 11/07/23 16:00 Blood Culture - Preliminary Blood 11/07/23 16:15 Blood Culture - Preliminary Blood 11/07/23 16:26 Urine Culture - Preliminary Urine,Voided Gram Neg Bacilli Assessment and Plan (1) Leukocytosis Current Visit: Yes Status: Acute Code(s): D72.829 - ELEVATED WHITE BLOOD CELL COUNT, UNSPECIFIED SNOMED Code(s): 363322579 (2) COVID-19 Current Visit: Yes Status: Acute Code(s): U07.1 - COVID-19 SNOMED Code(s): 114630805 (3) Urinary tract infection Current Visit: Yes Status: Acute Code(s): N39.0 - URINARY TRACT INFECTION, SITE NOT SPECIFIED SNOMED Code(s): 77052437 Plan: 1patient presented hospital with sepsis in this patient noted to have a fever elevated white count sources including antibiotic positive UA and urinary symptom suggestive of symptomatic UTI likely from enteric gram-negative pathogen 2-patient also tested positive for COVID-19 however the patient did not have significant respiratory symptoms and chest x-ray has been negative not behaving as COVID-19 pneumonia and treatment is mostly supportive 3did have abnormality on the chest x-ray but no respiratory symptoms no hypoxemia possible atelectasis rather than pneumonia 4patient urine culture currently growing gram-negative bacilli with ID sensitive pending patient white count improved continue with Rocephin while waiting for the culture to finalize Dictation was produced using [employer] dictation software. please excuse any grammatical, word or spelling errors. Time with Patient: Less than 30
[2023-11-10 11:25] LABS: INR 2.6 sec (0.93-1.11); Prothrombin Time 26.4 sec (9.9-11.9)
[2023-11-10] MEDS: WARFARIN 7.5 MG TAB PO ONE (18:18)
--- NOTE | 2023-11-10 21:43 | P.PN ---
Subjective Progress Note Date: 11/10/23 Principal diagnosis: Reason for follow-up is UTI and COVID-19 Patient is a 83-year-old male past medical history significant for hypertension hyperlipidemia coronary artery disease mechanical mitral valve and also have a history of brain tumor patient was brought into the hospital for evaluation of fever chills urinary incontinence and frequency and the patient has been diagnosed with a UTI also tested positive for COVID-19 with patient not hypoxic. On today's evaluation that is 11/10/2023, the patient continues to be afebrile, the patient is on room air and breathing comfortably, the Pt denies having any chest pain or cough, the patient denies having any abdominal pain no vomiting has been complaining of some diarrhea. No CBC was done today his INR is 2.60 stool for C. difficile is negative urine with an E. coli that is a sensitive pathogen Objective - Vital Signs Vital signs: Vital Signs Temp 98.0 F 11/10/23 14:00 Pulse 78 11/10/23 14:00 Resp 16 11/10/23 14:00 BP 170/79 11/10/23 14:00 Pulse Ox 98 11/10/23 14:00 FiO2 21 11/09/23 07:54 Intake & Output 11/09/23 11/10/23 11/10/23 18:59 06:59 18:59 Intake Total 600 350 Output Total 700 400 Balance -100 -400 350 Intake: Oral 600 350 Output: Urine 700 400 Other: Voiding Method Incontinent Incontinent Incontinent External Catheter External Catheter External Catheter # Voids 4 # Bowel Movements 1 1 - Exam GENERAL DESCRIPTION: An elderly male lying in bed in no distress RESPIRATORY SYSTEM: Unlabored breathing , decreased breath sounds at bases HEART: S1 S2 regular rate and rhythm , ABDOMEN: Soft , no tenderness EXTREMITIES: No edema feet - Labs CBC & Chem 7: 11/09/23 03:54 11/09/23 03:54 Labs: Abnormal Lab Results - Last 24 Hours (Table) 11/10/23 Range/Units 03:40 PT 26.4 H (9.9-11.9) sec INR 2.60 H (0.93-1.11) sec Microbiology - Last 24 Hours (Table) 11/07/23 16:00 Blood Culture - Preliminary Blood 11/07/23 16:15 Blood Culture - Preliminary Blood 05/03/24 16:26 Urine Culture - Final Urine,Voided Escherichia coli Assessment and Plan (1) Leukocytosis Current Visit: Yes Status: Acute Code(s): D72.829 - ELEVATED WHITE BLOOD CELL COUNT, UNSPECIFIED SNOMED Code(s): 390198322 (2) COVID-19 Current Visit: Yes Status: Acute Code(s): U07.1 - COVID-19 SNOMED Code(s): 651968398 (3) Urinary tract infection Current Visit: Yes Status: Acute Code(s): N39.0 - URINARY TRACT INFECTION, SITE NOT SPECIFIED SNOMED Code(s): 09653917 Plan: 1patient presented hospital with sepsis in this patient noted to have a fever elevated white count sources including antibiotic positive UA and urinary symptom suggestive of symptomatic UTI likely from enteric gram-negative pathogen 2-patient also tested positive for COVID-19 however the patient did not have significant respiratory symptoms and chest x-ray has been negative not behaving as COVID-19 pneumonia and treatment is mostly supportive 3did have abnormality on the chest x-ray but no respiratory symptoms no h ypoxemia possible atelectasis rather than pneumonia 4patient urine culture grew E. coli that is sensitive pathogen covered with Rocephin finishing therapy with Ceftin Dictation was produced using [employer] dictation software. please excuse any grammatical, word or spelling errors. Time with Patient: Less than 30
[2023-11-11 05:06] LABS: INR 3.8 (<1.2); Prothrombin Time 37.6 sec (10.0-12.5)
--- NOTE | 2023-11-11 06:18 | P.PN ---
Subjective Progress Note Date: 11/10/23 patient is a 83-year-old gentleman past medical history significant for hypertension, hyperlipidemia, atrial fibrillation who presented to the ER for increasing confusion fever and chills. Patient was all right 1 day back when he started noticing that he was having fevers associated with chills. Family also noted the patient was getting more confused. Patient was also having increased frequency of urination with incontinence. There was no complaint of hematuria. Denied any burning micturition. Denied any nausea or vomiting. There was no complaint of chest pain or shortness of breath. Denied any lightheaded or dizziness. Because of the symptoms, patient presented the ER Initial lab work done in the ER showed WBC 21, hemoglobin 12.8, platelet count 226, sodium 133, potassium 4.5, BUN 29, creatinine 1.05, lactate 3.5, UA done showed urine nitrite positive, leukocyte esterase large amount, urine WBC 117 Influenza A not detected Influenza B not detected RSV not detected COVID-19 detected EKG done in the ER showed heart rate of 89 , no ST segment elevation or depression seen, no T-wave inversions seen. Chest x-ray done in the ER right upper lobe infiltrate Patient admitted to internal medicine service 11/08. Patient seen and examined. Lab work done this morning showed WBC 12.75, hemoglobin 11.7, platelet count 178,. Still complaining general weakness, states he feels better than yesterday 11/10/2023 Patient is seen and evaluated in follow-up this morning currently working with physical therapy reports to doing well and has been up with minimal assistance and standby and reports plans on returning home on discharge. Infectious disease following and patient is maintained on antibiotics for acute urinary tract infection. Patient was also found to be COVID-positive and is currently maintaining oxygen saturations above 90% on room air. Patient reports he may have got it from his son who has been staying with them. Patient is afebrile with no reports of chest pain or shortness of breath. Patient has been tolerating diet with no reported nausea or vomiting. Patient denies pain or burning with urination but is reporting urgency and initially did have some incontinence. REVIEW OF SYSTEMS: CONSTITUTIONAL: No fever, no malaise,. CARDIOVASCULAR: No chest pain, no palpitations, no syncope. PULMONARY: No shortness of breath, no cough, GASTROINTESTINAL: No diarrhea, no nausea, no vomiting, no abdominal pain. NEUROLOGICAL: No headaches, no weakness PHYSICAL EXAMINATION: GENERAL: The patient is alert and oriented x3, Well developed, elderly appearing, thin built HEENT: Pupils are round and equally reacting to light. EOMI. No scleral icterus. No conjunctival pallor. Normocephalic, atraumatic. No pharyngeal erythema. No thyromegaly. CARDIOVASCULAR: S1 and S2 muffled PULMONARY: Diminished breath sounds bilaterally otherwise chest is clear to auscultation, no wheezing or crackles. ABDOMEN: Soft, thin, nontender, nondistended, normoactive bowel sounds. No palpable organomegaly. MUSCULOSKELETAL: No joint swelling or deformity. EXTREMITIES: No cyanosis, clubbing, or pedal edema. NEUROLOGICAL: Gross neurological examination did not reveal any focal deficits. SKIN: No rashes. Assessment: Acute UTI with sepsis, present on admission. Urine culture showing E. coli Lactic acidosis, secondary to above, improved COVID-19 infection, no respiratory distress Generalized weakness Hypertension history hyperlipidemia Chronic Coumadin use History of CABG GI prophylaxis DVT prophylaxis Full code Plan: Continue with antibiotics with infectious disease following and urine cultures finalized with E. coli with sensitivities will continue ceftriaxone and transition to Ceftin on discharge Follow-up on repeat labs and replace electrolytes per protocol Patient being evaluated by physical therapy and doing well and reports plans on returning home and will not require home care or rehab Encouraged oral intake Encouraged to increase activity as tolerated Patient does take Coumadin with history of CABG and INR is elevated with pharmacy dosing. Will adjust accordingly Will discuss with case management/social work regarding discharge planning. Po ssible discharge in the next 24 hours Due to multiple complex medical issues, prognosis is guarded The impression and plan of care has been dictated by Adelaida Angel, Nurse Practitioner as directed. Dr. Lily MD I have performed a history and examination and MDM of this patient, discussed the same with the dictator, and agree with the dictator's assessment and plan as written ,documented as a scribe. Based on total visit time, I have performed more than 50% of the visit. Objective - Vital Signs Vital signs: Vital Signs Temp 98.5 F 11/11/23 01:43 Pulse 58 L 11/11/23 01:43 Resp 20 11/11/23 01:43 BP 136/71 11/11/23 01:43 Pulse Ox 98 11/11/23 01:43 FiO2 21 11/09/23 07:54 Intake & Output 11/10/23 11/10/23 11/11/23 06:59 18:59 06:59 Intake Total 350 800 Output Total 400 Balance -400 350 800 Intake: Oral 350 800 Output: Urine 400 Other: Voiding Method Incontinent Incontinent Urinal External Catheter External Catheter Incontinent # Voids 4 3 # Bowel Movements 1 1 - Labs CBC & Chem 7: 11/09/23 03:54 11/09/23 03:54 Labs: Abnormal Lab Results - Last 24 Hours (Table) 11/10/23 11/11/23 Range/Units 03:40 04:17 PT 26.4 H 37.6 H (9.9-11.9) sec INR 2.60 H 3.8 H (0.93-1.11) sec Microbiology - Last 24 Hours (Table) 11/07/23 16:00 Blood Culture - Preliminary Blood 11/07/23 16:15 Blood Culture - Preliminary Blood 11/07/23 16:26 Urine Culture - Final Urine,Voided Escherichia coli
[2023-11-11 08:14] VITALS: BP 166/80; PULSE 85; RESP 16; TEMP 98
[2023-11-11 08:55] LABS: Basophils # (A) 0.1 k/uL (0-0.2); Basophils % (A) 1 %; Eosinophils # (A) 0.2 k/uL (0-0.7); Eosinophils % (A) 3 %; HCT 37.7 % (39.0-53.0); HGB 12.9 gm/dL (13.0-17.5); Lymphocytes % (A) 17 %; MCHC 34.2 g/dL (31.0-37.0); MCV 90.6 fL (80.0-100.0); Mean Platelet Volume 8.2; Monocytes # (A) 0.4 k/uL (0-1.0); Monocytes % (A) 7 %; Neutrophils # (A) 4.1 k/uL (1.3-7.7); Neutrophils % (A) 70 %; Platelet Count 237 k/uL (150-450); RBC 4.16 m/uL (4.30-5.90); RDW 15.1 % (11.5-15.5); WBC 5.8 k/uL (3.8-10.6)
[2023-11-11 09:05] LABS: ALT 77 U/L (4-49); AST 119 U/L (17-59); African American GFR (CKD) >90 (>60 ml/min/1.73 sqM); Albumin 3.5 g/dL (3.5-5.0); Alkaline Phosphatase 45 U/L (38-126); Anion Gap 10 mmol/L; Blood Urea Nitrogen 14 mg/dL (9-20); Calcium 8.8 mg/dL (8.4-10.2); Carbon Dioxide 20 mmol/L (22-30); Chloride 103 mmol/L (98-107); Globulin 3.4 g/dL; Glucose 115 mg/dL (74-99); Non-African American GFR(CKD) >90 (>60 ml/min/1.73 sqM); Potassium 3.5 mmol/L (3.5-5.1); Sodium 133 mmol/L (137-145); Total Bilirubin 0.7 mg/dL (0.2-1.3); Total Protein 6.9 g/dL (6.3-8.2)
[2023-11-11] MEDS ORDERED: Potassium Replacement Protocol 1 EACH MISC MISCELLANE PRN (10:13)
[2023-11-11] MEDS: POTASSIUM CHLORIDE ER 20 MEQ TAB.ER PO SCH (11:31)
[2023-11-11] MEDS: SENNOSIDES-DOCUSATE SODIUM 1 EACH TAB PO PRN (13:59)
[2023-11-11] MEDS: SENNOSIDES 8.6 MG TAB PO STA (14:19)
[2023-11-11] MEDS ORDERED: WARFARIN 0.5 MG TAB PO ONE (18:00)
== END 2023-11-11 17:51 | disposition home or self-care (01) | DRG 871 ==
LOC: EC 15:36 → 4SSUR 17:44
PROVIDERS: ADMIT Hospitalist; ATTEND Hospitalist
DX: A41.9 Sepsis, unspecified organism (principal); U07.1 COVID-19; N39.0 Urinary tract infection, site not specified; E87.1 Hypo-osmolality and hyponatremia; E87.20 Acidosis, unspecified; I48.91 Unspecified atrial fibrillation; E78.5 Hyperlipidemia, unspecified; B96.20 Unspecified Escherichia coli [E. coli] as the cause of diseases classified elsewhere; R32 Unspecified urinary incontinence; I10 Essential (primary) hypertension; Z79.899 Other long term (current) drug therapy; Z79.01 Long term (current) use of anticoagulants; Z95.2 Presence of prosthetic heart valve; Z78.9 Other specified health status; Z95.1 Presence of aortocoronary bypass graft; R53.1 Weakness; Z86.79 Personal history of other diseases of the circulatory system
CPT/HCPCS: 36415; 71046; 80053; 81001; 83605; 83735; 85025; 85610; 85730; 87040; 87077; 87086; 87186; 87324; 87636; 93005; 94760; 96361; 96365; 96366; 96368; 99291

== ENCOUNTER 2024-10-07 13:08 | Inpatient (IN) | payer MEDICARE ==
[2024-10-07 13:39] LABS: Appearance,Urine Clear (Clear); Bilirubin,Urine Negative (Negative); Blood,Urine Negative (Negative); Color,Urine Yellow; Glucose,Urine (UA) Negative (Negative); Ketones,Urine Negative (Negative); Leukocyte Esterase,Urine Negative (Negative); Nitrite,Urine Negative (Negative); PH, Urine 5.5 (5.0-8.0); Protein,Urine Trace (Negative); Specific Gravity,Urine 1.014 (1.001-1.035); Urobilinogen,Urine <2.0 mg/dL (<2.0)
[2024-10-07 13:53] LABS: Anisocytosis Slight; Basophils % (A) 1 %; Eosinophils # (A) 0.1 k/uL (0-0.7); Eosinophils % (A) 2 %; HGB 11.4 gm/dL (13.0-17.5); Hypochromasia Marked; Lymphocytes % (A) 26 %; MCH 25.6 pg (25.0-35.0); MCV 85.4 fL (80.0-100.0); Microcytosis Slight; Monocytes # (A) 0.4 k/uL (0-1.0); Monocytes % (A) 9 %; Neutrophils # (A) 2.3 k/uL (1.3-7.7); Neutrophils % (A) 58 %; Platelet Count 152 k/uL (150-450); Poikilocytosis Slight; RBC 4.45 m/uL (4.30-5.90); WBC 3.9 k/uL (3.8-10.6)
[2024-10-07 14:06] LABS: ALT 15 U/L (4-49); AST 36 U/L (17-59); African American GFR (CKD) 64 (>60 ml/min/1.73 sqM); Albumin 3.2 g/dL (3.5-5.0); Alkaline Phosphatase 72 U/L (38-126); Anion Gap 11 mmol/L; Blood Urea Nitrogen 44 mg/dL (9-20); Calcium 8.6 mg/dL (8.4-10.2); Carbon Dioxide 24 mmol/L (22-30); Chloride 107 mmol/L (98-107); Glucose 108 mg/dL (74-99); Magnesium 2.2 mg/dL (1.6-2.3); Non-African American GFR(CKD) 55 (>60 ml/min/1.73 sqM); Potassium 4.5 mmol/L (3.5-5.1); Sodium 142 mmol/L (137-145); Total Protein 6.7 g/dL (6.3-8.2)
[2024-10-07 14:13] LABS: NT-Pro-B-Type Natriuretic Pept 10600 pg/mL
--- NOTE | 2024-10-07 14:23 | ED ---
General Adult HPI - General Chief complaint: Urogenital Stated complaint: Urogenital Time Seen by Provider: 10/07/24 13:13 Source: patient, RN notes reviewed Mode of arrival: ambulatory Limitations: no limitations - History of Present Illness Initial comments: 84-year-old male presents emergency department with family, caregiver for evaluation of scrotal swelling, shortness of breath and cough. Patient had increasing scrotal swelling the last several days. Patient states there is some discomfort. Patient does have some mild leg swelling but better than it has been. He does notice that he had increasing weight gain and orthopnea. Patient does have a history of CHF. - Related Data Home Medications Medication Instructions Recorded Confirmed Atorvastatin Calcium [Lipitor] 40 mg PO HS 11/07/23 11/07/23 Chlorthalidone [Hygroton] 12.5 mg PO DAILY 11/07/23 11/07/23 Docusate [Colace] 100 - 300 mg PO DAILY PRN 11/07/23 11/07/23 Loratadine [Claritin] 10 mg PO DAILY 11/07/23 11/07/23 Metoprolol Tartrate [Lopressor] 50 mg PO BID 11/07/23 11/07/23 Sennosides/Docusate Sodium [Senna 2 - 4 tab PO DAILY PRN 11/07/23 11/07/23 Plus 8.6-50 mg Tablet] bisacodyL [Dulcolax] 5 - 15 mg PO DAILY PRN 11/07/23 11/07/23 lisinopriL [Zestril] 20 mg PO DAILY 11/07/23 11/07/23 HYDROcodone/APAP 10-325MG [[place] 1 tab PO Q8HR PRN 11/09/23 11/09/23 10-325] Previous Rx's Medication Instructions Recorded Acetaminophen Tab [Tylenol] 650 mg PO Q6HR PRN tab 11/11/23 Warfarin [Coumadin] 5 mg PO HS #0 tab 11/11/23 cefuroxime axetiL [Ceftin] 500 mg PO BID 5 Days #10 tab 11/11/23 Allergies Allergy/AdvReac Type Severity Reaction Status Date / Time No Known Allergies Allergy Verified 10/07/24 15:29 Review of Systems ROS Statement: Those systems with pertinent positive or pertinent negative responses have been documented in the HPI. ROS Other: All systems not noted in ROS Statement are negative. Past Medical History Past Medical History: Hyperlipidemia, Hypertension Additional Past Medical History / Comment(s): CABGx4 2010, mechanical valvue Mitral History of Any Multi-Drug Resistant Organisms: None Reported Past Surgical History: No Surgical Hx Reported Additional Past Surgical History / Comment(s): Brain tumor removal at age 21, artificial valve 2011, bypass 2009, Spinal shunt Past Anesthesia/Blood Transfusion Reactions: No Reported Reaction Past Psychological History: No Psychological Hx Reported Smoking Status: Never smoker Past Alcohol Use History: None Reported Past Drug Use History: None Reported General Exam Limitations: no limitations General appearance: alert, in no apparent distress Head exam: Present: atraumatic, normocephalic, normal inspection Eye exam: Present: normal appearance, PERRL, EOMI. Absent: scleral icterus, conjunctival injection, periorbital swelling ENT exam: Present: normal exam, normal oropharynx, mucous membranes moist Neck exam: Present: normal inspection. Absent: tenderness, meningismus, lymphadenopathy Respiratory exam: Present: rales. Absent: normal lung sounds bilaterally, respiratory distress, wheezes, rhonchi, stridor Cardiovascular Exam: Present: regular rate, normal rhythm, normal heart sounds. Absent: systolic murmur, diastolic murmur, rubs, gallop, clicks GI/Abdominal exam: Present: soft, normal bowel sounds. Absent: distended, tenderness, guarding, rebound, rigid exam: Present: scrotal swelling Extremities exam: Present: pedal edema Neurological exam: Present: alert Skin exam: Present: warm, dry, intact, normal color. Absent: rash Course Vital Signs 10/07/24 10/07/24 10/07/24 13:10 14:15 15:15 Temperature 98.2 F Pulse Rate 59 L 58 L 58 L Respiratory 18 20 20 Rate Blood Pressure 135/69 125/70 124/67 O2 Sat by Pulse 97 94 L 95 Oximetry EKG Findings - EKG Comments: EKG Findings:: EKG performed at 13: 36 atrial flutter with a rate of 58 QRS QT/QTc 457/454 - EKG Results: EKG: interpreted by [facility] Medical Decision Making - Medical Decision Making Was pt. sent in by a medical professional or institution (, PA, FIBERLINE SUPERVISOR, urgent care, hospital, or fpc...) When possible be specific @ -No Did you speak to anyone other than the patient for history (EMS, parent, family, police, friend...)? What history was obtained from this source @ -No Did you review nursing and triage notes (agree or disagree)? Why? @ -I reviewed and agree with nursing and triage notes Were old charts reviewed (outside hosp., previous admission, EMS record, old EKG, old radiological studies, urgent care reports/EKG's, fpc records)? Report findings @ -No old charts were reviewed Differential Diagnosis (chest pain, altered mental status, abdominal pain women, abdominal pain men, vaginal bleeding, weakness, fever, dyspnea, syncope, headache, dizziness, GI bleed, back pain, seizure, CVA, palpatations, mental health, musculoskeletal)? @ -Differential Dyspnea: Coronary syndrome, arrhythmia, tamponade, asthma, COPD, pulmonary embolism, pneumonia, pneumothorax, pulmonary effusion, anaphylaxis, diabetic ketoacidosis, flailed chest, pulmonary contusion, diaphragmatic rupture, anemia, neuromuscular, this is not meant to be an all-inclusive list. EKG interpreted by me (3pts min.). @ -As above X-rays interpreted by me (1pt min.). @ -Chest x-ray shows pulm edema, pleural effusion CT interpreted by me (1pt min.). @ -None done U/S interpreted by me (1pt. min.). @ -Ultrasound scrotum, normal blood flow soft tissue swelling What testing was considered but not performed or refused? (CT, X-rays, U/S, labs)? Why? @ -None What meds were considered but not given or refused? Why? @ -None Did you discuss the management of the patient with other professionals (professionals i.e. , PA, FIBERLINE SUPERVISOR, lab, RT, psych nurse, social media strategist, senior risk analyst, teacher, loan officer, case folder)? Give summary @ -Dr. Singh for admission Was smoking cessation discussed for >3mins.? @ -No Was critical care preformed (if so, how long)? @ -35 minutes Were there social determinants of health that impacted care today? How? (Homelessness, low income, unemployed, alcoholism, drug addiction, transportation, low edu. Level, literacy, decrease access to med. care, group home, rehab)? @ -No Was there de-escalation of care discussed even if they declined (Discuss DNR or withdrawal of care, Hospice)? DNR status @ -No What co-morbidities impacted this encounter? (DM, HTN, Smoking, COPD, CAD, Cancer, CVA, ARF, Chemo, Hep., AIDS, mental health diagnosis, sleep apnea, morbid obesity)? @ -None Was patient admitted / discharged? Hospital course, mention meds given and route, prescriptions, significant lab abnormalities, going to OR and other pertinent info. @ -Admitted patient presented for squirrels welling, dyspnea. Patient has acute CHF exacerbation. BNP is over 10,000 patient was given Lasix. Patient will be admitted for acute diuresis and further treatment management. Undiagnosed new problem with uncertain prognosis? @ -No Drug Therapy requiring intensive monitoring for toxicity (Heparin, Nitro, Insulin, Cardizem)? @ -No Were any procedures done? @ -No Diagnosis/symptom? @ -[CHF exacerbation, pleural effusion, scrotal l swelling Acute, or Chronic, or Acute on Chronic? @ -Acute Uncomplicated (without systemic symptoms) or Complicated (systemic symptoms)? @ -Complicated Side effects of treatment? @ -No Exacerbation, Progression, or Severe Exacerbation? @ -No Poses a threat to life or bodily function? How? (Chest pain, USA, OR, pneumonia, PE, COPD, DKA, ARF, appy, cholecystitis, CVA, Diverticulitis, Homicidal, Suicidal, threat to staff... and all critical care pts) @ -Yes CHF exacerbation, risk to cardiac and pulmonary function - Lab Data Result diagrams: 10/07/24 13:36 10/07/24 13:36 Lab Results 10/07/24 10/07/24 10/07/24 Range/Units 13:30 13:36 13:36 WBC 3.9 (3.8-10.6) k/uL RBC 4.45 (4.30-5.90) m/uL Hgb 11.4 L (13.0-17.5) gm/dL Hct 38.0 L (39.0-53.0) % MCV 85.4 (80.0-100.0) fL MCH 25.6 (25.0-35.0) pg MCHC 30.0 L (31.0-37.0) g/dL RDW 20.0 H (11.5-15.5) % Plt Count 152 (150-450) k/uL MPV 8.0 Neutrophils % 58 % Lymphocytes % 26 % Monocytes % 9 % Eosinophils % 2 % Basophils % 1 % Neutrophils # 2.3 (1.3-7.7) k/uL Lymphocytes # 1.0 (1.0-4.8) k/uL Monocytes # 0.4 (0-1.0) k/uL Eosinophils # 0.1 (0-0.7) k/uL Basophils # 0.0 (0-0.2) k/uL Hypochromasia Marked Poikilocytosis Slight Anisocytosis Slight Microcytosis Slight Sodium 142 (137-145) mmol/L Potassium 4.5 (3.5-5.1) mmol/L Chloride 107 (98-107) mmol/L Carbon Dioxide 24 (22-30) mmol/L Anion Gap 11 mmol/L BUN 44 H (9-20) mg/dL Creatinine 1.20 (0.66-1.25) mg/dL Est GFR (CKD-EPI)AfAm 64 (>60 ml/min/1.73 sqM) Est GFR (CKD-EPI)NonAf 55 (>60 ml/min/1.73 sqM) Glucose 108 H (74-99) mg/dL Calcium 8.6 (8.4-10.2) mg/dL Magnesium 2.2 (1.6-2.3) mg/dL Total Bilirubin 1.0 (0.2-1.3) mg/dL AST 36 (17-59) U/L ALT 15 (4-49) U/L Alkaline Phosphatase 72 (38-126) U/L NT-Pro-B Natriuret Pep 78533 pg/mL Total Protein 6.7 (6.3-8.2) g/dL Albumin 3.2 L (3.5-5.0) g/dL Urine Color Yellow Urine Appearance Clear (Clear) Urine pH 5.5 (5.0-8.0) Ur Specific [place] 1.014 (1.001-1.035) Urine Protein Trace H (Negative) Urine Glucose (UA) Negative (Negative) Urine Ketones Negative (Negative) Urine Blood Negative (Negative) Urine Nitrite Negative (Negative) Urine Bilirubin Negative (Negative) Urine Urobilinogen <2.0 (<2.0) mg/dL Ur Leukocyte Esterase Negative (Negative) Disposition Clinical Impression: Acute CHF (congestive heart failure), Scrotal swelling, Pleural effusion Disposition: ADMITTED IP TO THIS HOSP Condition: Fair Referrals: Luis Alberto Prince [Primary Care Provider] - 1-2 days Time of Disposition: 15:35
--- NOTE | 2024-10-07 14:40 | XR ---
EXAMINATION TYPE: XR chest 2V DATE OF EXAM: 10/07/2024 2:22 PM COMPARISON: 03/15/2024 CLINICAL INDICATION: Male, 84 years old with history of sob, , TECHNIQUE: AP and lateral views FINDINGS: Heart is enlarged. Tortuous thoracic aorta. [id number] bilateral pleural effusions with diffus e interstitial opacity and patchy mid and lower lung opacity. Median sternotomy wires. Prosthetic car diac valve. IMPRESSION: CHF with patchy pulmonary edema. [id number] bilateral pleural effusions. [facility], Workstation: [facility], 10/07/2024 2:38 PM
[2024-10-07] MEDS: FUROSEMIDE 10 MG/ML 4 ML VIAL IV STA (15:16)
--- NOTE | 2024-10-07 15:32 | US ---
EXAMINATION TYPE: US scrotum with doppler. DATE OF EXAM: 10/07/2024 COMPARISON: NONE CLINICAL INDICATION: Male, 84 years old with history of pain, swelling; Swelling. TECHNIQUE: Grayscale, color Doppler and spectral Doppler imaging of the scrotum. FINDINGS: EXAM MEASUREMENTS: TESTICLES: Right Testicle: 4.5 x 2.6 x 2.8 cm. Tiny nonspecific 6 mm parenchymal cyst. Punctate 3 mm calcificat ion. Left Testicle: 3.9 x 3.0 x 2.9 cm. *Nonspecific 9 mm parenchymal cyst. *Punctate 1 mm calcification. EPIDIDYMIS HEAD: Right Epididymis: 1.0 x 1.4 x 1.6 cm Left Epididymis: 0.7 x 1.6 x 1.7 cm Doppler performed to assess for testicular vascularity; bilateral color flow and spectral waveforms a re seen. Presence of hydroceles: Yes, right: 2.6 x 1.6 x 0.7 cm. Left: 2.9 x 0.9 x 0.5 cm. Presence of varicoceles: None seen Diffuse scrotal skin thickening measuring up to 1.5 cm. IMPRESSION: 1. Diffuse scrotal skin thickening up to 1.5 cm thick. Correlate for soft tissue edema/third spacing versus cellulitis. 2. No sonographic evidence for testicular torsion. 3. Small bilateral hydroceles. 4. A nonspecific intratesticular cyst measuring 6 mm on the right and 9 mm on the left. Questionable clinical significance. Recommend 2-3 month follow-up ultrasound to reassess. [facility], Workstation: [email or web address], 10/07/2024 3:29 PM
[2024-10-07] MEDS ORDERED: NALOXONE 0.4 MG/ML 1 ML VIAL IV PRN (15:35)
[2024-10-07 16:43] LABS: Influenza A Not Detected (Not Detectd); Influenza B Not Detected (Not Detectd); RSV Not Detected (Not Detectd)
[2024-10-07] MEDS: GABAPENTIN 300 MG CAP PO SCH (20:44)
[2024-10-07] MEDS: SENNOSIDES 8.6 MG TAB PO SCH (20:44)
[2024-10-07] MEDS: FUROSEMIDE 10 MG/ML 4 ML VIAL IV SCH (20:44)
[2024-10-07] MEDS: CITALOPRAM HYDROBROMIDE 10 MG TAB PO SCH (20:44)
[2024-10-07] MEDS: ATORVASTATIN 40 MG TAB PO SCH (20:44)
--- NOTE | 2024-10-07 20:46 | HP ---
HISTORY AND PHYSICAL CHIEF COMPLAINTS: Scrotal swelling, shortness of breath, and cough. HISTORY OF PRESENT ILLNESS: This is an 84-year-old gentleman with a past medical history of multiple medical problems including hypertension, hyperlipidemia, did not have any definite history of CHF, but the patient is complaining of shortness of breath and cough for the last several days. The family also noticed pain and swelling of the scrotum also. The patient admitted for further evaluation and treatment. The BNP elevated to 10,000 and the chest x-ray which was personally evaluated by me showed evidence of CHF and bilateral pleural effusion also. There is no history of any fever, rigors, or chills at this time. Parenchymal opacity was also noted. PAST MEDICAL HISTORY: History of hypertension, hyperlipidemia, CAD, CABG, mechanical mitral valve. Rest of the history and rest of the chart are also reviewed. ALLERGIES: None. FAMILY HISTORY: No history of heart disease or strokes in the family. SOCIAL HISTORY: No history of smoking or alcohol intake. HOME MEDICATIONS: Reviewed include Zestril. The medications are not confirmed yet. Rest of the medication and doses are reviewed. PHYSICAL EXAMINATION: VITAL SIGNS: Pulse is 58, blood pressure 124/60, respirations 20. HEENT: Conjunctivae normal. NECK: Jugular venous distention in the root of the neck. CARDIOVASCULAR: S1, S2. RESPIRATIONS: Breath sounds diminished at the bases. A few scattered rhonchi and crackles. ABDOMEN: Soft, nontender. Otherwise lower abdominal edema present. Bilateral scrotal swelling also present. Minimal edema. Pulses diminished bilaterally. NERVOUS SYSTEM: No focal deficits. Diffuse weakness. SKIN: No ulcer. JOINTS: No active deforming arthropathy. LABORATORY DATA: Hemoglobin . Rest of the labs are noted. ASSESSMENT: 1. Congestive heart failure acute exacerbation with ac on cc systolic dysfucnction 2. Bilateral scrotal swelling. 3. Hypertension. 4. Hyperlipidemia. 5. Coronary artery disease, coronary artery bypass graft. 6. Rule out pneumonia. 7. History of brain tumor removal. RECOMMENDATIONS AND DISCUSSION: This is an 84-year-old gentleman, who presented with multiple complex medical issues, we will monitor the patient closely. Continue the current management and continue symptomatic treatment. Recommend intravenous Lasix. Also recommend testing. Serum procalcitonin. 2D echo with Doppler. IV Lasix. Cardiology consultation. Resume the home medications once they are confirmed. Monitor lytes and creatinine closely. Prognosis guarded because of multiple complex medical issues. Further recommendations to follow. I would also recommend fluid restriction about 1200 mL per 24 hours. See orders for further details. MMODL / IJN: [id number] / MTDD
[2024-10-07] MEDS: HYDROcodone/APAP 10-325MG 1 EACH TAB PO SCH (23:29)
[2024-10-07] MEDS: MELATONIN 3 MG TABLET PO PRN (23:29)
[2024-10-08 07:04] LABS: Anisocytosis Slight; Basophils % (A) 0 %; Eosinophils # (A) 0.1 k/uL (0-0.7); Eosinophils % (A) 1 %; HCT 41.5 % (39.0-53.0); HGB 12.4 gm/dL (13.0-17.5); Hypochromasia Marked; Lymphocytes # (A) 0.9 k/uL (1.0-4.8); Lymphocytes % (A) 12 %; MCH 25.7 pg (25.0-35.0); MCHC 29.8 g/dL (31.0-37.0); MCV 86.2 fL (80.0-100.0); Mean Platelet Volume 7.2; Monocytes # (A) 0.5 k/uL (0-1.0); Monocytes % (A) 7 %; Neutrophils % (A) 78 %; Platelet Count 166 k/uL (150-450); Poikilocytosis Slight; RBC 4.82 m/uL (4.30-5.90); WBC 7.7 k/uL (3.8-10.6)
[2024-10-08 07:11] LABS: African American GFR (CKD) 80 (>60 ml/min/1.73 sqM); Anion Gap 7 mmol/L; Blood Urea Nitrogen 40 mg/dL (9-20); Calcium 8.6 mg/dL (8.4-10.2); Carbon Dioxide 27 mmol/L (22-30); Chloride 105 mmol/L (98-107); Glucose 94 mg/dL (74-99); Non-African American GFR(CKD) 69 (>60 ml/min/1.73 sqM); Sodium 139 mmol/L (137-145)
[2024-10-08 07:41] LABS: Potassium 5.7 mmol/L (3.5-5.1)
[2024-10-08] MEDS: lisinopriL 20 MG TAB PO SCH (08:11)
[2024-10-08] MEDS: METOPROLOL TARTRATE 50 MG TAB PO SCH (08:16)
[2024-10-08 08:49] LABS: INR 1.8 (<1.2); Prothrombin Time 18.7 sec (10.0-12.5)
[2024-10-08] MEDS ORDERED: HEPARIN SODIUM 1,000 UN/ML (10ML VL) IV PRN (09:47)
[2024-10-08] MEDS: HEPARIN SODIUM 1,000 UN/ML (10ML VL) IV ONE (10:28)
[2024-10-08] MEDS: HEPARIN SOD,PORK IN 0.45% NACL 25,000 UNIT in 0.45% NACL 1 250ML.BAG IV SCH (10:28)
[2024-10-08] MEDS: SODIUM ZIRCONIUM CYCLOSILICATE 10 GM PACKET PO SCH (10:32)
[2024-10-08] MEDS: SPIRONOLACTONE 25 MG TAB PO SCH (10:32)
[2024-10-08] MEDS: ASPIRIN 81 MG PO SCH (10:32)
[2024-10-08 10:33] LABS: Anisocytosis Moderate; Basophils % (A) 1 %; Eosinophils # (A) 0.1 k/uL (0-0.7); Eosinophils % (A) 1 %; HCT 39.9 % (39.0-53.0); HGB 11.7 gm/dL (13.0-17.5); Hypochromasia Marked; Lymphocytes # (A) 0.8 k/uL (1.0-4.8); Lymphocytes % (A) 12 %; MCH 25.6 pg (25.0-35.0); MCHC 29.3 g/dL (31.0-37.0); MCV 87.4 fL (80.0-100.0); Mean Platelet Volume 8.2; Monocytes # (A) 0.4 k/uL (0-1.0); Monocytes % (A) 6 %; Neutrophils # (A) 4.8 k/uL (1.3-7.7); Neutrophils % (A) 79 %; Platelet Count 171 k/uL (150-450); Poikilocytosis Slight; RBC 4.57 m/uL (4.30-5.90); RDW 20.4 % (11.5-15.5); WBC 6.2 k/uL (3.8-10.6)
[2024-10-08 10:42] LABS: INR 1.9 (<1.2); Partial Thromboplastin Time 28.6 sec (22.0-30.0); Prothrombin Time 19.1 sec (10.0-12.5)
--- NOTE | 2024-10-08 11:07 | P.CRDCN ---
History of Present Illness History of present illness: HISTORY OF PRESENT ILLNESS: This is a 84-year-old male with a past medical history significant for coronary artery disease with previous CABG, history of mechanical mitral valve replaceme nt, hypertension, hyperlipidemia, moderate to severe aortic regurgitation, congestive heart failure, and persistent atrial fibrillation. Patient follows in the office with Dr. Valdez. We have been asked to see the patient in consultation for congestive heart failure. Patient examined at the bedside. Patient states he was brought to the hospital because his 's hospice nurse took his vital signs and was found to have elevated blood pressure. The patient denied having any chest pain or pressure. He denied having any shortness of breath. Patient states he has been compliant with his medications at home. However patient was found to be in acute CHF and was started on IV Lasix. Additionally he was found to have subtherapeutic INR of 1.8. DIAGNOSTICS: - EKG reveals atrial fibrillation with T wave inversions in anterolateral leads - Chest xray CHF with patchy pulmonary edema. Small to moderate bilateral pleural effusions. - Laboratory data: WBC 7.7. Hemoglobin 12.4. Platelet count 166. Sodium 139. Potassium 5.7. BUN 40. Creatinine 1.0. proBNP 10,600. - Current home cardiac medications include Lasix 80 mg daily, Lipitor 40 mg at night, Coumadin 7.5 mg on Friday and 3.75 mg on the remaining days of the week, lisinopril 20 mg daily, metoprolol 50 mg twice a day - Most recent echocardiogram obtained in December 2022 revealed ejection fraction 45 to 50%, moderate concentric LVH, moderate to severe aortic regurgitation, mechanical mitral valve prosthesis with normal function, moderate TR -Patient underwent Lexiscan stress test in November 2014 revealing abnormal stress myocardial perfusion imaging with evidence of small to moderate-sized moderate intensity fixed defect involving inferior lateral wall suggestive of prior myocardial infarction without stress-induced ischemia. -Patient underwent CABG and mechanical mitral valve replacement in 2006 - Cardiac catheterization history: Unknown REVIEW OF SYSTEMS: At the time of my exam: CONSTITUTIONAL: Denies fever or chills. HEENT: Denies blurred vision, vision changes, or eye pain. Denies hemoptysis CARDIOVASCULAR: Denies chest pain. Denies orthopnea. Denies PND. Denies palpitations RESPIRATORY: Denies shortness of breath. GASTROINTESTINAL: Denies abdominal pain. Denies nausea or vomiting. HEMATOLOGIC: Denies bleeding disorders. GENITOURINARY: Denies any blood in urine. SKIN: Denies pruitis. Denies rash. PHYSICAL EXAM: VITAL SIGNS: Reviewed. GENERAL: Well-developed in no acute distress. HEENT: Head is normocephalic. Pupils are equal, round. Sclerae anicteric. Mucous membranes of the mouth are moist. Neck supple. No JVD or thyromegaly LUNGS: Respirations even and unlabored. Lungs essentially clear to auscultation bilaterally. HEART: Irregular rate and rhythm. [place] S1 noted. Positive systolic and d iastolic murmur. ABDOMEN: Soft. Nondistended. Nontender. EXTREMITIES: Normal range of motion. No clubbing or cyanosis. Peripheral pulses intact but diminished. Trace bilateral lower extremity edema NEUROLOGIC: Awake and alert. Oriented x 3. ASSESSMENT: Acute on chronic heart failure with mildly reduced EF, 45% Small to moderate bilateral pleural effusions Coronary artery disease with previous CABG, 2006 History of mechanical mitral valve replacement, 2006 Moderate to severe aortic regurgitation Persistent atrial fibrillation Hypertension Hyperlipidemia History of medical noncompliance PLAN: Obtain 2D echo to assess cardiac structure and function Obtain lower extremity arterial Doppler Continue IV Lasix 40 mg twice a day Daily weights, accurate intake and output, monitoring of kidney function Add aspirin 81 mg daily Patient's potassium was elevated this morning at 5.7. However specimen was hemolyzed. Dr. Nguyen would still like the patient to receive 2 doses of Lokelma. Potassium on admission 4.5. Add Aldactone 25 mg daily Continue Coumadin. Monitor INR. Begin IV heparin due to subtherapeutic INR Further recommendations pending patient course Nurse practitioner note has been reviewed by physician. Signing provider agrees with the documented findings, assessment, and plan of care documented by [employer]AM[employer] as a scribe. Past Medical History Past Medical History: Hyperlipidemia, Hypertension Additional Past Medical History / Comment(s): CABGx4 2009, mechanical valvue Mitral pt is now on palliative care History of Any Multi-Drug Resistant Organisms: None Reported Past Surgical History: No Surgical Hx Reported Additional Past Surgical History / Comment(s): Brain tumor removal at age 21, artificial valve 2011, bypass 2009, Spinal shunt Past Anesthesia/Blood Transfusion Reactions: No Reported Reaction Past Psychological History: No Psychological Hx Reported Additional Psychological History / Comment(s): recent history of sundowning at Smoking Status: Never smoker Past Alcohol Use History: None Reported Past Drug Use History: None Reported Medications and Allergies Home Medications Medication Instructions Recorded Confirmed Type Atorvastatin Calcium [Lipitor] 40 mg PO HS 11/07/23 10/07/24 History Metoprolol Tartrate [Lopressor] 50 mg PO BID 11/07/23 10/07/24 History lisinopriL [Zestril] 20 mg PO DAILY 11/07/23 10/07/24 History HYDROcodone/APAP 10-325MG [[place]win 1 tab PO Q8HR 11/09/23 10/07/24 History 10-325] Cholecalciferol (Vitamin D3) 50 mcg PO DAILY 10/07/24 10/07/24 History [Vitamin D3 (50 Mcg = 2000 Iu)] Citalopram Hydrobromide [CeleXA] 10 mg PO DAILY 10/07/24 10/07/24 History Furosemide [Lasix] 80 mg PO DAILY 10/07/24 10/07/24 History Gabapentin 300 mg PO HS 10/07/24 10/07/24 History Magnesium Glycinate 200mg 200 mg PO HS 10/07/24 10/07/24 History Potassium Chloride ER [K-Dur 10] 10 meq PO DAILY 10/07/24 10/07/24 History Sennosides [Senokot] 25.8 mg PO HS 10/07/24 10/07/24 History Warfarin [Coumadin] 3.75 mg PO MOTUWETHFRSA@2100 10/07/24 10/07/24 History Warfarin [Coumadin] 7.5 mg PO HELTON@2100 10/07/24 10/07/24 History Allergies Allergy/AdvReac Type Severity Reaction Status Date / Time No Known Allergies Allergy Verified 10/07/24 15:29 Physical Exam Vitals: Vital Signs Temp Pulse Pulse Pulse Resp BP BP 10/08/24 03:44 97.9 F 77 18 158/84 10/07/24 23:55 98.4 F 59 L 18 154/67 10/07/24 20:00 98.1 F 57 L 17 155/75 10/07/24 17:33 97.6 F 58 L 16 151/78 10/07/24 17:00 58 L 18 140/78 10/07/24 15:15 58 L 20 124/67 10/07/24 14:15 58 L 20 125/70 10/07/24 13:10 98.2 F 59 L 18 135/69 Pulse Ox 10/08/24 03:44 97 10/07/24 23:55 95 10/07/24 20:00 95 10/07/24 17:33 96 10/07/24 17:00 96 10/07/24 15:15 95 10/07/24 14:15 94 L 10/07/24 13:10 97 Intake and Output 10/07/24 10/08/24 10/08/24 22:59 06:59 14:59 Output Total 350 750 Balance -350 -750 Output: Urine 350 750 Other: Voiding Method External Catheter Urinal Diaper Weight 77.111 kg 77 kg Results 10/08/24 10:04 10/08/24 06:41 Cardiac Enzymes 10/07/24 Range/Units 13:36 AST 36 (17-59) U/L CBC 10/07/24 10/08/24 Range/Units 13:36 06:41 WBC 3.9 7.7 (3.8-10.6) k/uL RBC 4.45 4.82 (4.30-5.90) m/uL Hgb 11.4 L 12.4 L (13.0-17.5) gm/dL Hct 38.0 L 41.5 (39.0-53.0) % Plt Count 152 166 (150-450) k/uL Comprehensive Metabolic Panel 10/07/24 10/08/24 Range/Units 13:36 06:41 Sodium 142 139 (137-145) mmol/L Potassium 4.5 5.7 H (3.5-5.1) mmol/L Chloride 107 105 (98-107) mmol/L Carbon Dioxide 24 27 (22-30) mmol/L BUN 44 H 40 H (9-20) mg/dL Creatinine 1.20 1.00 (0.66-1.25) mg/dL Glucose 108 H 94 (74-99) mg/dL Calcium 8.6 8.6 (8.4-10.2) mg/dL AST 36 (17-59) U/L ALT 15 (4-49) U/L Alkaline Phosphatase 72 (38-126) U/L Total Protein 6.7 (6.3-8.2) g/dL Albumin 3.2 L (3.5-5.0) g/dL Current Medications Generic Name Dose Route Start Last Admin Trade Name Freq PRN Reason Stop Dose Admin Hydrocodone Bitart/Acetaminophen 1 each 10/08/24 00:00 10/07/24 23:29 Hydrocodone/Apap 10-325mg 1 Each Tab PO 1 each Q8HR HARSHAL Administration Atorvastatin Calcium 40 mg 10/07/24 21:00 10/07/24 20:44 Atorvastatin 40 Mg Tab PO 40 mg HS HARSHAL Administration Citalopram Hydrobromide 10 mg 10/07/24 17:45 10/07/24 20:44 Citalopram Hydrobromide 10 Mg Tab PO 10 mg DAILY HARSHAL Administration Furosemide 40 mg 10/07/24 21:00 10/07/24 20:44 Furosemide 10 Mg/Ml 4 Ml Vial IV 40 mg BID HARSHAL Administration Gabapentin 300 mg 10/07/24 21:00 10/07/24 20:44 Gabapentin 300 Mg Cap PO 300 mg HS HARSHAL Administration Lisinopril 20 mg 10/08/24 09:00 Lisinopril 20 Mg Tab PO DAILY HARSHAL Melatonin 3 mg 10/07/24 17:39 10/07/24 23:29 Melatonin 3 Mg Tablet PO 3 mg HS PRN Administration Insomnia Naloxone HCl 0.2 mg 10/07/24 15:35 Naloxone 0.4 Mg/Ml 1 Ml Vial IV Q2M PRN Opioid Reversal Senna 25.8 mg 10/07/24 21:00 10/07/24 20:44 Sennosides 8.6 Mg Tab PO 25.8 mg HS HARSHAL Administration Intake and Output 10/07/24 10/08/24 10/08/24 22:59 06:59 14:59 Output Total 350 750 Balance -350 -750 Output: Urine 350 750 Other: Voiding Method External Catheter Urinal Diaper Weight 77.111 kg 77 kg 10/08/24 06:41 10/08/24 06:41
--- NOTE | 2024-10-08 12:03 | CA ---
Transthoracic Echo Report Name: Bob Noonan Age: 84 Gender: M : 1940 Exam Date: 10/08/2024 08:26 Exam Location: [facility] Ht (in): 70 Wt (lb): 170 Ordering Physician: Becki Singh MD Attending/Referring Phys: Merchandise Pickup/Receiving Associate Cindi Pike RDCS Procedure CPT: Indications: chf Cardiac Hx: Mechanical MV Technical Quality: Contrast 1: Total Dose (mL): Contrast 2: Total Dose (mL): MEASUREMENTS (Male / Female) Normal Values 2D ECHO LV Diastolic Diameter PLAX 5.1 cm 4.2 - 5.9 / 3.9 - 5.3 cm LV Systolic Diameter PLAX 4.4 cm IVS Diastolic Thickness 1.4 cm 0.6 - 1.0 / 0.6 - 0.9 cm LVPW Diastolic Thickness 1.4 cm 0.6 - 1.0 / 0.6 - 0.9 cm LV Relative Wall Thickness 0.6 RV Internal Dim ED PLAX 4.6 cm LA Systolic Diameter LX 4.7 cm 3.0 - 4.0 / 2.7 - 3.8 cm LV Diastolic Volume MOD BP 164.8 cm??? 67 - 155 / 56 - 104 cm??? LV Systolic Volume MOD BP 97.8 cm??? 22 - 58 / 19 - 49 cm??? LV Ejection Fraction MOD BP 40.7 % >= 55 % LV Diastolic Volume MOD 4C 130.9 cm??? LV Systolic Volume MOD 4C 68.3 cm??? LV Ejection Fraction MOD 4C 47.8 % LV Diastolic Length 4C 8.7 cm LV Systolic Length 4C 8.1 cm LV Diastolic Volume MOD 2C 171.1 cm??? LV Systolic Volume MOD 2C 116.3 cm??? LV Ejection Fraction MOD 2C 32.0 % LV Diastolic Length 2C 9.8 cm LV Systolic Length 2C 8.9 cm M-MODE Aortic Root Diameter MM 4.2 cm DOPPLER AV Peak Velocity 122.4 cm/s AV Peak Gradient 6.0 mmHg AI Peak Velocity 452.4 cm/s AI Peak Gradient 81.9 mmHg AI Pressure Half Time 679.1 ms MV Area PHT 2.9 cm??? TR Peak Velocity 257.3 cm/s TR Peak Gradient 26.5 mmHg Right Ventricular Systolic Press 36.5 mmHg FINDINGS Left Ventricle Left ventricular ejection fraction is estimated at 35-40 %. Moderately increased septal wall thickness. Mildly increased left ventricular diastolic volume. Severely increased left ventricular systolic volume. Moderately decreased left ventricular ejection fraction. Right Ventricle Severe right ventricular dilatation. Mild pulmonary hypertension. Right Atrium Severe right atrial dilatation. No right atrial thrombus or mass seen. Left Atrium Mildly increased left atrial diameter. No left atrial thrombus or mass present. Mitral Valve Normal functioning mechanical MV with mean gradient of 2 mmHg. Trace mitral regurgitation. Aortic Valve Trileaflet aortic valve. Diffuse thickening (sclerosis) of the aortic valve cusps without reduced excursion. Mild aortic regurgitation. Tricuspid Valve Structurally normal tricuspid valve. Mild tricuspid regurgitation. Pulmonic Valve Structurally normal pulmonic valve. Mild pulmonic regurgitation. Pericardium No pericardial effusion. Pleural effusion. Aorta Moderate aortic dilatation at the level of the sinuses of valsalva 42 mm CONCLUSIONS Diagnosis congestive heart failure Moderate to severe LV dysfunction Biatrial enlargement RV enlargement Moderate aortic regurgitation Mechanical mitral valve palpated stable with a gradient of less than 5 mmHg Previewed by: Dr. Chu Banuelos MD (Electronically Signed) Final Date: 08 October 2024 12:02
--- NOTE | 2024-10-08 12:59 | US ---
EXAMINATION TYPE: US arterial LE multi level DATE OF EXAM: 10/08/2024 12:35 PM COMPARISONS: None. CLINICAL INDICATION: Male, 84 years old with history of r/o PAD, c/o pain; leg pain TECHNIQUE: Systolic pressures were taken of the upper and lower extremity arteries with ankle-brachia l indices and toe brachial indices calculated bilaterally. History of: Smoker: Yes Hypertension: Yes Diabetic: No Hyperlipidemia: No TIA/CVA: No Previous Vascular Surgery: No CAD: No CA: No Vascular Ulcers: No Claudication: No Gangrene: No FINDINGS: Doppler Waveforms: Right: Monophasic Left: Multiphasic Brachial Artery systolic pressure: Right: 100 Left: deferred due to IV Posterior Tibial artery systolic pressure: Right: 111 Left: 151 Dorsalis Pedis artery systolic pressure: Right: 114 Left: 125 Ankle-Brachial Indices: Right: 1.1 Left: 1.5 IMPRESSION: TATA: Right: Normal 0.9 - 1.4, Recommendation: None Left: Vessel hardening > 1.4, Recommendation: Refer to vascular specialist [facility], , 10/08/2024 12:57 PM
[2024-10-08] MEDS: WARFARIN 5 MG TAB PO ONE (18:10)
[2024-10-08] MEDS: amLODIPine 10 MG TAB PO SCH (18:10)
--- NOTE | 2024-10-09 00:10 | PN ---
PROGRESS NOTE DATE OF SERVICE: 10/08/2024 SUBJECTIVE: This is an 84-year-old gentleman, who was admitted with CHF exacerbation as well as significant suprapubic, perineal, and scrotal swelling, who is being closely monitored. The patient is being diuresed, and 2D echo with Doppler showed [id number] LV dysfunction. Multiple valve abnormalities. Ejection fraction was found to be 35% to 40%. Ultrasound of the leg was ordered. PAST MEDICAL HISTORY: Reviewed. REVIEW OF SYSTEMS: Fourteen-point review of systems negative except as mentioned earlier. CURRENT MEDICATIONS: Reviewed. PHYSICAL EXAMINATION: VITAL SIGNS: Pulse 60, blood pressure 118/73, respirations 18. CHEST: Clear to auscultation. CARDIOVASCULAR: S1, S2. CHEST: Few scattered rhonchi and crackles in the bases. ABDOMEN: Soft, nontender, especially swelling in the lower part of the abdomen. Perineal edema as scrotal swelling also present. LABORATORY DATA: INR 1.9. ASSESSMENT: 1. Congestive heart failure with acute exacerbation with acute on chronic systolic dysfunction, ejection fraction of 35% to 40%. 2. Moderate aortic regurgitation. 3. Bilateral scrotal swelling. 4. Hypertension. 5. Hyperlipidemia. 6. History of coronary artery disease with coronary artery bypass graft. 7. History of brain tumor removal. 8. Rule out pneumonia. RECOMMENDATIONS AND DISCUSSION: This is an 84-year-old gentleman, who presented with multiple complex medical issues. We will monitor the patient closely. Continue the current management and continue symptomatic treatment. Otherwise, continue with the diuretics. I would also recommend CT scan of the chest, abdomen, and pelvis also to complete the workup. Overall prognosis is guarded because of multiple complex medical conditions. Further recommendations to follow. See orders for details. MMODL / IJN: [id number] /
[2024-10-09 07:25] LABS: Anisocytosis Moderate; Basophils # (A) 0.1 k/uL (0-0.2); Basophils % (A) 1 %; Eosinophils # (A) 0.1 k/uL (0-0.7); Eosinophils % (A) 2 %; HCT 44.9 % (39.0-53.0); HGB 12.9 gm/dL (13.0-17.5); Hypochromasia Marked; Lymphocytes # (A) 1.1 k/uL (1.0-4.8); Lymphocytes % (A) 25 %; MCH 25.2 pg (25.0-35.0); MCHC 28.7 g/dL (31.0-37.0); Mean Platelet Volume 8.3; Monocytes # (A) 0.3 k/uL (0-1.0); Monocytes % (A) 8 %; Neutrophils # (A) 2.6 k/uL (1.3-7.7); Neutrophils % (A) 60 %; Platelet Count 187 k/uL (150-450); Poikilocytosis Slight; RDW 20.2 % (11.5-15.5); WBC 4.3 k/uL (3.8-10.6)
[2024-10-09 07:30] LABS: ALT 13 U/L (4-49); AST 30 U/L (17-59); African American GFR (CKD) >90 (>60 ml/min/1.73 sqM); Alkaline Phosphatase 75 U/L (38-126); Anion Gap 9 mmol/L; Blood Urea Nitrogen 32 mg/dL (9-20); Calcium 8.4 mg/dL (8.4-10.2); Carbon Dioxide 27 mmol/L (22-30); Chloride 105 mmol/L (98-107); Glucose 85 mg/dL (74-99); INR 1.8 (<1.2); Non-African American GFR(CKD) 83 (>60 ml/min/1.73 sqM); Partial Thromboplastin Time 42.1 sec (22.0-30.0); Potassium 3.3 mmol/L (3.5-5.1); Prothrombin Time 18.5 sec (10.0-12.5); Sodium 141 mmol/L (137-145); Total Bilirubin 1.2 mg/dL (0.2-1.3); Total Protein 6.5 g/dL (6.3-8.2)
[2024-10-09] MEDS: IOPAMIDOL CONTRAST (ORAL USE) VIAL PO PRN (09:06)
[2024-10-09] MEDS ORDERED: Potassium Replacement Protocol 1 EACH MISC MISCELLANE PRN (13:18)
[2024-10-09] MEDS: POTASSIUM CHLORIDE ER 20 MEQ TAB.ER PO SCH (13:31)
--- NOTE | 2024-10-09 14:38 | CT ---
EXAMINATION TYPE: CT abdomen pelvis wo con DATE OF EXAM: 10/09/2024 10:43 AM COMPARISON: None. CLINICAL INDICATION: Male, 84 years old with history of ascites, ascites TECHNIQUE: Axial images were obtained from above the diaphragm to the pubic rami in the axial plane a t 5 mm thick sections. Reconstructed images are reviewed on the computer in the coronal plane. CONTRAST: mL of . Study performed with Oral Contrast DLP: 615.3 mGycm, Automated exposure control for dose reduction was used. FINDINGS: Limited CT sections are obtained the lung bases. Small bilateral pleural effusions are present. Ther e is likely some compressive atelectasis in the right infrahilar region. Underlying pneumonia or mass is not excluded. Follow-up to clearing is recommended there is some compressive atelectasis of the l eft lung base. CT ABDOMEN: Mild ascites is present Liver: Normal Spleen: Normal Pancreas: Normal Adrenal glands: The adrenal glands are normal. Gallbladder: Normal Kidneys: No masses are evident. No hydronephrosis is present. There is a 11.2 x 8 the superior late ral left kidney. .2 cm cyst. There is a 1.7 cm cyst on the lateral right kidney. Some malrotation and malpositioning of the right kidney is evident. No renal stones are identified. Aorta: Vascular calcification is within the aorta. Inferior vena cava: Normal. CT PELVIS: Loops of bowel within the abdomen and pelvis are normal. There are loops of bowel which are incom pletely distended or lack oral contrast limiting their evaluation. Appendix: Not clearly identified. No suspicious dilated tubular structure is identified. Urinary bladder: Normal. Genitourinary structures: Prostate has mild prominence Osseous structures: No suspicious lytic or sclerotic lesions. Degenerative disc changes are within th e lower lumbar spine. IMPRESSION: 1. Mild ascites. 2. Small bilateral pleural effusions with adjacent compressive atelectasis. Underlying mass or pneumo clarice right infrahilar region is not excluded. Follow-up to clearing is recommended. 3. Large posterior lateral left renal cyst. [facility], , 10/09/2024 2:36 PM
[2024-10-09] MEDS ORDERED: WARFARIN 7.5 MG TAB PO SCH (18:00)
[2024-10-09] MEDS: WARFARIN 5 MG TAB PO ONE (18:08)
--- NOTE | 2024-10-09 23:54 | P.PN ---
Subjective Progress Note Date: 10/09/24 HISTORY OF PRESENT ILLNESS: This is a 84-year-old male with a past medical history significant for coronary artery disease with previous CABG, history of mechanical mitral valve replacement, hypertension, hyperlipidemia, moderate to severe aortic regurgitation, congestive heart failure, and persistent atrial fibrillation. Patient follows in the office with Dr. Valdez. We have been asked to see the patient in consultation for congestive heart failure. Patient examined at the bedside. Patient states he was brought to the hospital because his 's hospice nurse took his vital signs and was found to have elevated blood pressure. The patient denied having any chest pain or pressure. He denied having any shortness of breath. Patient states he has been compliant with his medications at home. However patient was found to be in acute CHF and was started on IV Lasix. Additionally he was found to have subtherapeutic INR of 1.8. DIAGNOSTICS: - EKG reveals atrial fibrillation with T wave inversions in anterolateral leads - Chest xray CHF with patchy pulmonary edema. Small to moderate bilateral pleural effusions. - Laboratory data: WBC 7.7. Hemoglobin 12.4. Platelet count 166. Sodium 139. Potassium 5.7. BUN 40. Creatinine 1.0. proBNP 10,600. - Current home cardiac medications include Lasix 80 mg daily, Lipitor 40 mg at night, Coumadin 7.5 mg on Friday and 3.75 mg on the remaining days of the week, lisinopril 20 mg daily, metoprolol 50 mg twice a day - Most recent echocardiogram obtained in December 2022 revealed ejection fraction 45 to 50%, moderate concentric LVH, moderate to severe aortic regurgitation, mechanical mitral valve prosthesis with normal function, moderate TR -Patient underwent Lexiscan stress test in November 2014 revealing abnormal stress myocardial perfusion imaging with evidence of small to moderate-sized moderate intensity fixed defect involving inferior lateral wall suggestive of prior myocardial infarction without stress-induced ischemia. -Patient underwent CABG and mechanical mitral valve replacement in 2006 - Cardiac catheterization history: Unknown 10/09/2024 Symptomatically better, less volume overloaded, scrotal swelling has improved Kidney function is stable, blood pressure and heart rate are stable. PHYSICAL EXAM: VITAL SIGNS: Reviewed. GENERAL: Well-developed in no acute distress. HEENT: Head is normocephalic. Pupils are equal, round. Sclerae anicteric. Mucous membranes of the mouth are moist. Neck supple. No JVD or thyromegaly LUNGS: Respirations even and unlabored. Lungs essentially clear to auscultation bilaterally. HEART: Irregular rate and rhythm. [place] S1 noted. Positive systolic and diastolic murmur. ABDOMEN: Soft. Nondistended. Nontender. EXTREMITIES: Normal range of motion. No clubbing or cyanosis. Peripheral puls es intact but diminished. Trace bilateral lower extremity edema NEUROLOGIC: Awake and alert. Oriented x 3. ASSESSMENT: Acute on chronic heart failure with mildly reduced EF, 45% Small to moderate bilateral pleural effusions Coronary artery disease with previous CABG, 2006 History of mechanical mitral valve replacement, 2006 Moderate to severe aortic regurgitation Persistent atrial fibrillation Hypertension Hyperlipidemia History of medical noncompliance Echo from this admission shows an EF of 35 to 40%, moderate to severe LV dilatation, mild dilatation, dilated RV, moderate aortic regurgitation, mechanical aortic valve, with no significant stenosis. TATA normal on the right side, left was more than 1.4. PLAN: Continue IV Lasix 40 mg twice a day. Transition to p.o. tomorrow Add aspirin 81 mg daily, continue IV heparin drip and warfarin. Discontinue IV heparin drip since INR is between 2.5-3.5 Metoprolol 50 mg twice daily Aldactone 25 mg daily Continue Coumadin. Monitor INR. Objective - Vital Signs Vital signs: Vital Signs Temp 97.8 F 10/09/24 19:30 Pulse 60 10/09/24 19:30 Resp 18 10/09/24 19:30 BP 123/68 10/09/24 19:30 Pulse Ox 97 10/09/24 19:30 FiO2 Intake & Output 10/09/24 10/09/24 10/10/24 06:59 18:59 06:59 Intake Total 848.402 Output Total 650 1200 1000 Balance -650 -351.598 -1000 Weight 72 kg Intake: Intake, IV Titration 248.402 Amount Heparin Sod,Pork in 0.45% 248.402 NaCl 25,000 unit In 0.45 % NaCl 1 250ml.bag @ 12 UNITS/KG/HR 9.24 mls/hr IV .Q24H [facility] Rx#: [id number] Oral 600 Output: Urine 650 1200 1000 Other: Voiding Method External Catheter External Catheter External Catheter # Voids 600 # Bowel Movements 1 - Labs CBC & Chem 7: 10/09/24 06:32 10/09/24 06:32 Labs: Abnormal Lab Results - Last 24 Hours (Table) 10/09/24 10/09/24 10/09/24 Range/Units 06:32 06:32 06:32 Hgb 12.9 L (13.0-17.5) gm/dL MCHC 28.7 L (31.0-37.0) g/dL RDW 20.2 H (11.5-15.5) % PT 18.5 H (10.0-12.5) sec INR 1.8 H (<1.2) APTT 42.1 H (22.0-30.0) sec Potassium 3.3 L (3.5-5.1) mmol/L BUN 32 H (9-20) mg/dL Albumin 3.0 L (3.5-5.0) g/dL
--- NOTE | 2024-10-10 03:50 | PN ---
PROGRESS NOTE DATE OF SERVICE: 10/09/2024 SUBJECTIVE: This is an 84-year-old gentleman admitted with CHF exacerbation. Also had a CT scan of the abdomen and pelvis that showed small bilateral pleural effusions. No chest pain. Mild ascites. EXAM: VITAL SIGNS: Pulse is 90, blood pressure 130/86, respirations 18. HEENT: Conjunctivae normal. NECK: No JVD. CARDIOVASCULAR: S1, S2. CHEST: Few scattered rhonchi. ABDOMEN: Soft, nontender. NERVOUS SYSTEM: No focal deficits. LABORATORY DATA: Reviewed. REVIEW OF SYSTEMS: Negative except as mentioned earlier. ASSESSMENT: 1. CHF exacerbation with acute on chronic systolic dysfunction, ejection fraction 35%- 40%. 2. Moderate aortic regurgitation. 3. Bilateral scrotal swelling, improving. 4. Hypertension. 5. Hyperlipidemia. 6. History of CAD, CABG. 7. History of brain tumor removal. 8. Pneumonia ruled out. RECOMMENDATIONS AND DISCUSSION: This 84-year-old gentleman presented with multiple complex medical issues. We will monitor the patient closely. I would recommend symptomatic treatment and incentive spirometry. Continue with diuretics. Continue with Coumadin. Prognosis guarded because of multiple complex medical conditions. Further recommendations to follow. See orders for details. MMODL / IJN: [id number] /
[2024-10-10 08:29] LABS: Anisocytosis Moderate; Basophils # (A) 0.1 k/uL (0-0.2); Basophils % (A) 1 %; Eosinophils # (A) 0.1 k/uL (0-0.7); Eosinophils % (A) 2 %; HCT 44.3 % (39.0-53.0); HGB 13.1 gm/dL (13.0-17.5); Hypochromasia Marked; Lymphocytes # (A) 1.5 k/uL (1.0-4.8); Lymphocytes % (A) 28 %; MCH 25.7 pg (25.0-35.0); MCHC 29.5 g/dL (31.0-37.0); MCV 86.9 fL (80.0-100.0); Mean Platelet Volume 8.1; Monocytes # (A) 0.4 k/uL (0-1.0); Monocytes % (A) 8 %; Neutrophils # (A) 2.9 k/uL (1.3-7.7); Neutrophils % (A) 57 %; Platelet Count 214 k/uL (150-450); Poikilocytosis Slight; RDW 20.2 % (11.5-15.5); WBC 5.1 k/uL (3.8-10.6)
[2024-10-10 08:40] LABS: Partial Thromboplastin Time 62.6 sec (22.0-30.0); Prothrombin Time 20.1 sec (10.0-12.5)
[2024-10-10 08:49] LABS: ALT 11 U/L (4-49); AST 39 U/L (17-59); African American GFR (CKD) >90 (>60 ml/min/1.73 sqM); Albumin 3.4 g/dL (3.5-5.0); Alkaline Phosphatase 90 U/L (38-126); Anion Gap 7 mmol/L; Blood Urea Nitrogen 25 mg/dL (9-20); Calcium 8.4 mg/dL (8.4-10.2); Carbon Dioxide 31 mmol/L (22-30); Chloride 101 mmol/L (98-107); Glucose 103 mg/dL (74-99); Non-African American GFR(CKD) 87 (>60 ml/min/1.73 sqM); Potassium 3.4 mmol/L (3.5-5.1); Sodium 139 mmol/L (137-145); Total Bilirubin 1.2 mg/dL (0.2-1.3); Total Protein 7.3 g/dL (6.3-8.2)
[2024-10-10] MEDS: WARFARIN 7.5 MG TAB PO SCH (18:58)
[2024-10-10] MEDS ORDERED: Potassium Replacement Protocol 1 EACH MISC MISCELLANE PRN (19:20)
--- NOTE | 2024-10-10 20:44 | P.PN ---
Subjective Progress Note Date: 10/10/24 HISTORY OF PRESENT ILLNESS: This is a 84-year-old male with a past medical history significant for coronary artery disease with previous CABG, history of mechanical mitral valve replacement, hypertension, hyperlipidemia, moderate to severe aortic regurgitation, congestive heart failure, and persistent atrial fibrillation. Patient follows in the office with Dr. Valdez. We have been asked to see the patient in consultation for congestive heart failure. Patient examined at the bedside. Patient states he was brought to the hospital because his 's hospice nurse took his vital signs and was found to have elevated blood pressure. The patient denied having any chest pain or pressure. He denied having any shortness of breath. Patient states he has been compliant with his medications at home. However patient was found to be in acute CHF and was started on IV Lasix. Additionally he was found to have subtherapeutic INR of 1.8. DIAGNOSTICS: - EKG reveals atrial fibrillation with T wave inversions in anterolateral leads - Chest xray CHF with patchy pulmonary edema. Small to moderate bilateral pleural effusions. - Laboratory data: WBC 7.7. Hemoglobin 12.4. Platelet count 166. Sodium 139. Potassium 5.7. BUN 40. Creatinine 1.0. proBNP 10,600. - Current home cardiac medications include Lasix 80 mg daily, Lipitor 40 mg at night, Coumadin 7.5 mg on Friday and 3.75 mg on the remaining days of the week, lisinopril 20 mg daily, metoprolol 50 mg twice a day - Most recent echocardiogram obtained in December 2022 revealed ejection fraction 45 to 50%, moderate concentric LVH, moderate to severe aortic regurgitation, mechanical mitral valve prosthesis with normal function, moderate TR -Patient underwent Lexiscan stress test in November 2014 revealing abnormal stress myocardial perfusion imaging with evidence of small to moderate-sized moderate intensity fixed defect involving inferior lateral wall suggestive of prior myocardial infarction without stress-induced ischemia. -Patient underwent CABG and mechanical mitral valve replacement in 2006 - Cardiac catheterization history: Unknown 10/09/2024 Symptomatically better, less volume overloaded, scrotal swelling has improved Kidney function is stable, blood pressure and heart rate are stable. 10/10/2024 INR is 2 today. No signs of bleeding, appears to be approaching euvolemia, continue IV diuretics today, transition to p.o. tomorrow and anticipate discharge tomorrow if INR is therapeutic in the range of 2.5-3.5 PHYSICAL EXAM: VITAL SIGNS: Reviewed. GENERAL: Well-developed in no acute distress. HEENT: Head is normocephalic. Pupils are equal, round. Sclerae anicteric. Mucous membranes of the mouth are moist. Neck supple. No JVD or thyromegaly LUNGS: Respirations even and unlabored. Lungs essentially clear to auscultation bilaterally. HEART: Irregular rate and rhythm. [place] S1 noted. Positive systolic and diastolic murmur. ABDOMEN: Soft. Nondistended. Nontender. EXTREMITIES: Normal range of motion. No clubbing or cyanosis. Peripheral pulses intact but diminished. Trace bilateral lower extremity edema NEUROLOGIC: Awake and alert. Oriented x 3. ASSESSMENT: Acute on chronic heart failure with mildly reduced EF, 45% Small to moderate bilateral pleural effusions Coronary artery disease with previous CABG, 2006 History of mechanical mitral valve replacement, 2006 Moderate to severe aortic regurgitation Persistent atrial fibrillation Hypertension Hyperlipidemia History of medical noncompliance Echo from this admission shows an EF of 35 to 40%, moderate to severe LV dilatation, mild dilatation, dilated RV, moderate aortic regurgitation, mechanical aortic valve, with no significant stenosis. TATA normal on the right side, left was more than 1.4. PLAN: continue IV diuretics today, transition to p.o. tomorrow and anticipate discharge tomorrow if INR is therapeutic in the range of 2.5-3.5 Continue IV Lasix 40 mg twice a day. Transition to p.o. tomorrow Add aspirin 81 mg daily, continue IV heparin drip and warfarin. Discontinue IV heparin drip since INR is between 2.5-3.5 Metoprolol 50 mg twice daily Aldactone 25 mg daily Continue Coumadin. Monitor INR. Objective - Vital Signs Vital signs: Vital Signs Temp 98.2 F 10/10/24 07:41 Pulse 75 10/10/24 16:00 Resp 18 10/10/24 16:00 BP 146/72 10/10/24 16:00 Pulse Ox 94 L 10/10/24 16:00 FiO2 Intake & Output 10/10/24 10/10/24 10/11/24 06:59 18:59 06:59 Intake Total 1202.242 Output Total 1700 1400 Balance -1700 -197.758 Weight 75.5 kg Intake: Intake, IV Titration 242.242 Amount Heparin Sod,Pork in 0.45% 242.242 NaCl 25,000 unit In 0.45 % NaCl 1 250ml.bag @ 12 UNITS/KG/HR 9.24 mls/hr IV .Q24H [facility] Rx#: [id number] Oral 960 Output: Urine 1700 1400 Other: Voiding Method External Catheter External Catheter - Labs CBC & Chem 7: 10/10/24 08:01 10/10/24 08:01 Labs: Abnormal Lab Results - Last 24 Hours (Table) 10/10/24 10/10/24 10/10/24 Range/Units 08:01 08:01 08:01 MCHC 29.5 L (31.0-37.0) g/dL RDW 20.2 H (11.5-15.5) % PT 20.1 H (10.0-12.5) sec INR 2.0 H (<1.2) APTT 62.6 H (22.0-30.0) sec Potassium 3.4 L (3.5-5.1) mmol/L Carbon Dioxide 31 H (22-30) mmol/L BUN 25 H (9-20) mg/dL Glucose 103 H (74-99) mg/dL Albumin 3.4 L (3.5-5.0) g/dL
[2024-10-10] MEDS: POTASSIUM CHLORIDE ER 20 MEQ TAB.ER PO SCH (21:31)
[2024-10-10] MEDS: QUEtiapine 25 MG TAB PO STA (23:22)
--- NOTE | 2024-10-11 00:42 | PN ---
PROGRESS NOTE DATE OF SERVICE: 10/10/2024 SUBJECTIVE: This is an 84-year-old gentleman admitted with CHF acute exacerbation, improving significantly. No chest pain. No palpitation. OBJECTIVE: VITAL SIGNS: Pulse is 59, blood pressure 120/87, respirations 20. CHEST: A few scattered rhonchi and crackles. ABDOMEN: Soft. NERVOUS SYSTEM: No focal deficits. LABORATORY DATA: Reviewed. ASSESSMENT: 1. Congestive heart failure acute exacerbation with acute on chronic systolic dysfunction, ejection fraction 35% to 40%. 2. Moderate aortic regurgitation. 3. Bilateral scrotal swelling, improving. 4. Hypertension. 5. Hyperlipidemia. 6. History of coronary artery disease, coronary artery bypass graft. 7. Multiple complex medical issues. RECOMMENDATIONS: Recommend to continue current medications and continue symptomatic treatment. Otherwise, I would recommend repeat labs and chest x-ray. If the patient is improving, probably discharge in the next 24 to 48 hours. MMODL / IJN: [id number] /
[2024-10-11 07:07] LABS: Anisocytosis Moderate; Basophils # (A) 0.1 k/uL (0-0.2); Basophils % (A) 1 %; Eosinophils # (A) 0.1 k/uL (0-0.7); Eosinophils % (A) 2 %; Hypochromasia Marked; Lymphocytes # (A) 1.1 k/uL (1.0-4.8); Lymphocytes % (A) 25 %; MCH 25.5 pg (25.0-35.0); MCHC 29.3 g/dL (31.0-37.0); Mean Platelet Volume 7.8; Monocytes # (A) 0.4 k/uL (0-1.0); Monocytes % (A) 8 %; Neutrophils # (A) 2.6 k/uL (1.3-7.7); Neutrophils % (A) 59 %; Platelet Count 190 k/uL (150-450); Poikilocytosis Slight; RBC 4.71 m/uL (4.30-5.90); RDW 20.1 % (11.5-15.5); WBC 4.4 k/uL (3.8-10.6)
[2024-10-11 07:16] LABS: African American GFR (CKD) >90 (>60 ml/min/1.73 sqM); Anion Gap 5 mmol/L; Blood Urea Nitrogen 22 mg/dL (9-20); Calcium 8.4 mg/dL (8.4-10.2); Carbon Dioxide 31 mmol/L (22-30); Chloride 102 mmol/L (98-107); Glucose 84 mg/dL (74-99); Non-African American GFR(CKD) 90 (>60 ml/min/1.73 sqM); Potassium 3.6 mmol/L (3.5-5.1); Sodium 138 mmol/L (137-145)
--- NOTE | 2024-10-11 07:19 | XR ---
EXAMINATION TYPE: XR chest 1V portable DATE OF EXAM: 10/11/2024 6:39 AM COMPARISON: 10/07/2024 CLINICAL INDICATION: Male, 84 years old with history of chf, TECHNIQUE: XR chest 1V portable view(s) obtained. FINDINGS: The heart size is enlarged. The pulmonary vasculature is prominent. Diffuse infiltrates lung markings are present bilaterally. IMPRESSION: 1. Clinical correlation recommended for worsening congestive heart failure [facility], , 10/11/2024 7:16 AM
[2024-10-11 07:35] LABS: INR 2.5 (<1.2); Partial Thromboplastin Time 61.4 sec (22.0-30.0); Prothrombin Time 25.1 sec (10.0-12.5)
--- NOTE | 2024-10-11 12:07 | P.PN ---
Subjective Progress Note Date: 10/11/24 HISTORY OF PRESENT ILLNESS: This is a 84-year-old male with a past medical history significant for coronary artery disease with previous CABG, history of mechanical mitral valve replacement, hypertension, hyperlipidemia, moderate to severe aortic regurgitation, congestive heart failure, and persistent atrial fibrillation. Patient follows in the office with Dr. Valdez. We have been asked to see the patient in consultation for congestive heart failure. Patient examined at the bedside. Patient states he was brought to the hospital because his 's hospice nurse took his vital signs and was found to have elevated blood pressure. The patient denied having any chest pain or pressure. He denied having any shortness of breath. Patient states he has been compliant with his medications at home. However patient was found to be in acute CHF and was started on IV Lasix. Additionally he was found to have subtherapeutic INR of 1.8. DIAGNOSTICS: - EKG reveals atrial fibrillation with T wave inversions in anterolateral leads - Chest xray CHF with patchy pulmonary edema. Small to moderate bilateral pleural effusions. - Laboratory data: WBC 7.7. Hemoglobin 12.4. Platelet count 166. Sodium 139. Potassium 5.7. BUN 40. Creatinine 1.0. proBNP 10,600. - Current home cardiac medications include Lasix 80 mg daily, Lipitor 40 mg at night, Coumadin 7.5 mg on Friday and 3.75 mg on the remaining days of the week, lisinopril 20 mg daily, metoprolol 50 mg twice a day - Most recent echocardiogram obtained in December 2022 revealed ejection fraction 45 to 50%, moderate concentric LVH, moderate to severe aortic regurgitation, mechanical mitral valve prosthesis with normal function, moderate TR -Patient underwent Lexiscan stress test in November 2014 revealing abnormal stress myocardial perfusion imaging with evidence of small to moderate-sized moderate intensity fixed defect involving inferior lateral wall suggestive of prior myocardial infarction without stress-induced ischemia. -Patient underwent CABG and mechanical mitral valve replacement in 2006 - Cardiac catheterization history: Unknown 10/09/2024 Symptomatically better, less volume overloaded, scrotal swelling has improved Kidney function is stable, blood pressure and heart rate are stable. 10/10/2024 INR is 2 today. No signs of bleeding, appears to be approaching euvolemia, continue IV diuretics today, transition to p.o. tomorrow and anticipate discharge tomorrow if INR is therapeutic in the range of 2.5-3.5 10/11 Patient seen and examined. Repeat INR is 2.5 and heparin drip will be discontinued. Other blood work reveals BUN 22 creatinine 0.64, potassium 3.6, hemoglobin 12. Blood pressure 104/63, heart rate 59, pulse ox 97% on 2 L nasal cannula. PHYSICAL EXAM: VITAL SIGNS: Reviewed. GENERAL: Well-developed in no acute distress. HEENT: Head is normocephalic. Pupils are equal, round. Sclerae anicteric. Mucous membranes of the mouth are moist. Neck supple. No JVD or thyromegaly LUNGS: Respirations even and unlabored. Lungs essentially clear to auscultation bilaterally. HEART: Irregular rate and rhythm. [place] S1 noted. Positive systolic and diastolic murmur. ABDOMEN: Soft. Nondistended. Nontender. EXTREMITIES: Normal range of motion. No clubbing or cyanosis. Peripheral pulses intact but diminished. Trace bilateral lower extremity edema NEUROLOGIC: Awake and alert. Oriented x 3. ASSESSMENT: Acute on chronic heart failure with mildly reduced EF, 45% Small to moderate bilateral pleural effusions Coronary artery disease with previous CABG, 2006 History of mechanical mitral valve replacement, 2006 Moderate to severe aortic regurgitation Persistent atrial fibrillation Hypertension Hyperlipidemia History of medical noncompliance Echo from this admission shows an EF of 35 to 40%, moderate to severe LV dilatation, mild dilatation, dilated RV, moderate aortic regurgitation, mechanical aortic valve, with no significant stenosis. TATA normal on the right side, left was more than 1.4. PLAN: Transition IV Lasix to oral 40 mg twice daily Discontinue heparin drip and continue patient on Coumadin Continue to monitor INR Continue patient on aspirin, atorvastatin, metoprolol tartrate 50 mg twice daily, Aldactone 25 mg daily Resume patient on lisinopril 5 mg twice daily Discontinue amlodipine due to low EF Increase activity and out of bed Anticipate discharge home tomorrow. Patient will follow-up in the office with Dr. Valdez in 1 to 2 weeks. Nurse practitioner note has been reviewed, I agree with documented findings and plan of care. Patient was seen and examined. Objective - Vital Signs Vital signs: Vital Signs Temp 98.0 F 10/11/24 08:38 Pulse 58 L 10/11/24 08:38 Resp 18 10/11/24 08:38 BP 153/75 10/11/24 08:38 Pulse Ox 95 10/11/24 08:38 FiO2 Intake & Output 10/10/24 10/11/24 10/11/24 18:59 06:59 18:59 Intake Total 1202.242 118 Output Total 1400 1700 Balance -197.758 -1700 118 Weight 76 kg Intake: Intake, IV Titration 242.242 Amount Heparin Sod,Pork in 0.45% 242.242 NaCl 25,000 unit In 0.45 % NaCl 1 250ml.bag @ 12 UNITS/KG/HR 9.24 mls/hr IV .Q24H [facility] Rx#: [id number] Oral 960 118 Output: Urine 1400 1700 Other: Voiding Method External Catheter External Catheter - Labs CBC & Chem 7: 10/11/24 06:40 10/11/24 06:40 Labs: Abnormal Lab Results - Last 24 Hours (Table) 10/11/24 10/11/24 10/11/24 Range/Units 06:40 06:40 06:40 Hgb 12.0 L (13.0-17.5) gm/dL MCHC 29.3 L (31.0-37.0) g/dL RDW 20.1 H (11.5-15.5) % PT 25.1 H (10.0-12.5) sec INR 2.5 H (<1.2) APTT 61.4 H (22.0-30.0) sec Carbon Dioxide 31 H (22-30) mmol/L BUN 22 H (9-20) mg/dL Creatinine 0.64 L (0.66-1.25) mg/dL
[2024-10-11] MEDS: FUROSEMIDE 40 MG TAB PO SCH (16:43)
[2024-10-11] MEDS: WARFARIN 7.5 MG TAB PO SCH (18:36)
[2024-10-11] MEDS: lisinopriL 5 MG TAB PO SCH (21:55)
[2024-10-11] MEDS: QUEtiapine 25 MG TAB PO ONE (21:55)
--- NOTE | 2024-10-12 05:56 | P.PN ---
Subjective Progress Note Date: 10/11/24 This is an 84-year-old male who was recently admitted with increased shortness of breath and swelling of testicles and lower extremities being closely monitored for congestive heart failure exacerbation. Patient maintained on diuresis with cardiology following showing significant improvements and will be transition to oral Lasix recommend monitoring overnight with possible discharge planning to home. Patient does have palliative care and discharge planning arrangements being made including a specialty bed. Review of systems: Constitutional: No reports of fatigue, fever, or chills Cardiovascular: No reports of chest pain or palpitations Respiratory: No reports of shortness of breath or cough GI: No reports of nausea, no reports of vomiting, no diarrhea : No reports of dysuria or retention Neurovascular: reports of generalized weakness All medications have been reviewed PHYSICAL EXAMINATION: GENERAL: The patient is alert and oriented x4, Well developed, thin build, elderly. HEENT: Pupils are round and equally reacting to light. EOMI. no scleral icterus. No conjunctival pallor. Normocephalic, atraumatic. No pharyngeal erythema. No thyromegaly. CARDIOVASCULAR: S1 and S2 muffled PULMONARY: diminished breath sounds bilaterally with no wheezing or rhonchi noted. ABDOMEN: soft. Nontender on exam. Thin. non-distended, normoactive bowel sounds. No palpable organomegaly. MUSCULOSKELETAL: No joint swelling or deformity. EXTREMITIES: No cyanosis, clubbing, or pedal edema. NEUROLOGICAL: Gross neurological examination did not reveal any focal deficits. Diffuse weakness SKIN: No rashes. Assessment: Congestive heart failure, acute exacerbation with acute on chronic systolic dysfunction, EF is 35 to 40% Moderate aortic regurgitation Bilateral scrotal swelling, secondary to CHF exacerbation, improving Hypertension Hyperlipidemia History of coronary artery disease with previous CABG GI prophylaxis DVT prophylaxis Full code Plan: Recommend to continue with current medications and management with cardiology following. Patient transitioning over to oral Lasix and recommend monitoring overnight Patient showing improvements in scrotal swelling and lower extremity swelling and will continue current regimen Repeat labs in a.m. to monitor kidney functions and electrolytes. Replace electrolytes per protocol Case management following making arrangements for discharge planning including specialty bed in the home to manage CHF as patient requires head of the bed elevated 35 to 45 degrees to assist with breathing difficulties Possible discharge planning in the next 24 hours Due to multiple complex medical issues, overall prognosis is guarded. Home with palliative care The impression and plan of care has been dictated by Adelaida Angel nurse alejandro montaño as directed. Dr. Francisco MD I have performed a history and examination and MDM of this patient, discussed the same with the dictator, and agree with the dictator's assessment and plan as written ,documented as a scribe. Based on total visit time, I have performed more than 50% of the visit. Any additional findings or plans will be noted. Good how are you Objective - Vital Signs Vital signs: Vital Signs Temp 98.0 F 10/11/24 08:38 Pulse 59 L 10/11/24 11:40 Resp 16 10/11/24 11:40 BP 104/63 10/11/24 11:40 Pulse Ox 97 10/11/24 11:40 FiO2 Intake & Output 10/10/24 10/11/24 10/11/24 18:59 06:59 18:59 Intake Total 1202.242 478 Output Total 1400 1700 700 Balance -197.758 -1700 -222 Weight 76 kg Intake: Intake, IV Titration 242.242 Amount Heparin Sod,Pork in 0.45% 242.242 NaCl 25,000 unit In 0.45 % NaCl 1 250ml.bag @ 12 UNITS/KG/HR 9.24 mls/hr IV .Q24H [facility] Rx#: [id number] Oral 960 478 Output: Urine 1400 1700 700 Other: Voiding Method External Catheter External Catheter External Catheter - Labs CBC & Chem 7: 10/11/24 06:40 10/11/24 06:40 Labs: Abnormal Lab Results - Last 24 Hours (Table) 10/11/24 10/11/24 10/11/24 Range/Units 06:40 06:40 06:40 Hgb 12.0 L (13.0-17.5) gm/dL MCHC 29.3 L (31.0-37.0) g/dL RDW 20.1 H (11.5-15.5) % PT 25.1 H (10.0-12.5) sec INR 2.5 H (<1.2) APTT 61.4 H (22.0-30.0) sec Carbon Dioxide 31 H (22-30) mmol/L BUN 22 H (9-20) mg/dL Creatinine 0.64 L (0.66-1.25) mg/dL
[2024-10-12 07:37] LABS: HGB 12.9 g/dL (13.0-17.0); MCH 25.8 pg (27.0-32.0); MCHC 30.7 g/dL (32.0-37.0); Mean Platelet Volume 9.6 fL (9.5-12.2); Platelet Count 233 10*3/uL (140-440); WBC 4.61 10*3/uL (4.50-10.00)
[2024-10-12 07:50] LABS: INR 2.4 (<1.2); Prothrombin Time 23.7 sec (10.0-12.5)
[2024-10-12 07:54] LABS: African American GFR (CKD) >90 (>60 ml/min/1.73 sqM); Anion Gap 6 mmol/L; Blood Urea Nitrogen 22 mg/dL (9-20); Calcium 8.9 mg/dL (8.4-10.2); Carbon Dioxide 34 mmol/L (22-30); Chloride 100 mmol/L (98-107); Glucose 88 mg/dL (74-99); Non-African American GFR(CKD) 85 (>60 ml/min/1.73 sqM); Potassium 3.7 mmol/L (3.5-5.1); Sodium 140 mmol/L (137-145)
[2024-10-12 10:04] VITALS: RESP 16
[2024-10-12] MEDS: DAPAGLIFLOZIN PROPANEDIOL 10 MG TABLET PO SCH (11:37)
[2024-10-12 11:44] VITALS: BP 129/56; PULSE 59; TEMP 97.6
[2024-10-12] MEDS ORDERED: WARFARIN 2 MG TAB PO ONE (18:00)
--- NOTE | 2024-10-13 07:10 | P.PN ---
Subjective Progress Note Date: 10/12/24 HISTORY OF PRESENT ILLNESS: This is a 84-year-old male with a past medical history significant for coronary artery disease with previous CABG, history of mechanical mitral valve replacement, hypertension, hyperlipidemia, moderate to severe aortic regurgitation, congestive heart failure, and persistent atrial fibrillation. Patient follows in the office with Dr. Valdez. We have been asked to see the patient in consultation for congestive heart failure. Patient examined at the bedside. Patient states he was brought to the hospital because his 's hospice nurse took his vital signs and was found to have elevated blood pressure. The patient denied having any chest pain or pressure. He denied having any shortness of breath. Patient states he has been compliant with his medications at home. However patient was found to be in acute CHF and was started on IV Lasix. Additionally he was found to have subtherapeutic INR of 1.8. DIAGNOSTICS: - EKG reveals atrial fibrillation with T wave inversions in anterolateral leads - Chest xray CHF with patchy pulmonary edema. Small to moderate bilateral pleural effusions. - Laboratory data: WBC 7.7. Hemoglobin 12.4. Platelet count 166. Sodium 139. Potassium 5.7. BUN 40. Creatinine 1.0. proBNP 10,600. - Current home cardiac medications include Lasix 80 mg daily, Lipitor 40 mg at night, Coumadin 7.5 mg on Friday and 3.75 mg on the remaining days of the week, lisinopril 20 mg daily, metoprolol 50 mg twice a day - Most recent echocardiogram obtained in December 2022 revealed ejection fraction 45 to 50%, moderate concentric LVH, moderate to severe aortic regurgitation, mechanical mitral valve prosthesis with normal function, moderate TR -Patient underwent Lexiscan stress test in November 2014 revealing abnormal stress myocardial perfusion imaging with evidence of small to moderate-sized moderate intensity fixed defect involving inferior lateral wall suggestive of prior myocardial infarction without stress-induced ischemia. -Patient underwent CABG and mechanical mitral valve replacement in 2006 - Cardiac catheterization history: Unknown 10/09/2024 Symptomatically better, less volume overloaded, scrotal swelling has improved Kidney function is stable, blood pressure and heart rate are stable. 10/10/2024 INR is 2 today. No signs of bleeding, appears to be approaching euvolemia, continue IV diuretics today, transition to p.o. tomorrow and anticipate discharge tomorrow if INR is therapeutic in the range of 2.5-3.5 10/11 Patient seen and examined. Repeat INR is 2.5 and heparin drip will be discontinued. Other blood work reveals BUN 22 creatinine 0.64, potassium 3.6, hemoglobin 12. Blood pressure 104/63, heart rate 59, pulse ox 97% on 2 L nasal cannula. 10/12 Patient seen and examined. He denies chest pain no dizziness. He states his breathing is better. He did have a good night. No lower extremity edema. Blood pressure 142/69, heart rate is in the 60s, pulse ox 95% on 2 L. Yesterday IV Lasix was transitioned to oral and heparin was discontinued as INR was therapeutic. Also lisinopril was resumed at 5 mg twice daily. Amlodipine was discontinued due to low EF. PHYSICAL EXAM: VITAL SIGNS: Reviewed. GENERAL: Well-developed in no acute distress. HEENT: Head is normocephalic. Pupils are equal, round. Sclerae anicteric. Mucous membranes of the mouth are moist. Neck supple. No JVD or thyromegaly LUNGS: Respirations even and unlabored. Lungs essentially clear to auscultation bilaterally. HEART: Irregular rate and rhythm. [place] S1 noted. Positive systolic and diastolic murmur. ABDOMEN: Soft. Nondistended. Nontender. EXTREMITIES: Normal range of motion. No clubbing or cyanosis. Peripheral pulses intact but diminished. Trace bilateral lower extremity edema NEUROLOGIC: Awake and alert. Oriented x 3. ASSESSMENT: Acute on chronic heart failure with mildly reduced EF, 45% Small to moderate bilateral pleural effusions Coronary artery disease with previous CABG, 2006 History of mechanical mitral valve replacement, 2006 Moderate to severe aortic regurgitation Persistent atrial fibrillation Hypertension Hyperlipidemia History of medical noncompliance Echo from this admission shows an EF of 35 to 40%, moderate to severe LV dilatation, mild dilatation, dilated RV, moderate aortic regurgitation, mecha nical aortic valve, with no significant stenosis. TATA normal on the right side, left was more than 1.4. PLAN: Continue Lasix oral 40 mg twice daily Continue patient on aspirin, atorvastatin, metoprolol tartrate 50 mg twice daily, Aldactone 25 mg daily Continue patient on lisinopril 5 mg twice daily Discontinue amlodipine due to low EF Add Farxiga 10 mg daily Patient is cleared for discharge from cardiology. Patient will follow-up in the office with Dr. Valdez in 1 to 2 weeks. Nurse practitioner note has been reviewed, I agree with documented findings and plan of care. Patient was seen and examined. Objective - Vital Signs Vital signs: Vital Signs Temp 97.5 F L 10/12/24 08:35 Pulse 66 10/12/24 08:35 Resp 16 10/12/24 08:35 BP 142/69 10/12/24 08:35 Pulse Ox 95 10/12/24 08:35 FiO2 Intake & Output 10/11/24 10/12/24 10/12/24 18:59 06:59 18:59 Intake Total 718 20 180 Output Total 1350 850 400 Balance -632 -830 -220 Weight 70.5 kg Intake: IV 20 Invasive Line 2 20 Oral 718 180 Output: Urine 1350 850 400 Other: Voiding Method External Catheter External Catheter - Labs CBC & Chem 7: 10/12/24 06:49 10/12/24 06:49 Labs: Abnormal Lab Results - Last 24 Hours (Table) 10/12/24 10/12/24 10/12/24 Range/Units 06:49 06:49 06:49 Hgb 12.9 L (13.0-17.0) g/dL MCH 25.8 L (27.0-32.0) pg MCHC 30.7 L (32.0-37.0) g/dL PT 23.7 H (10.0-12.5) sec INR 2.4 H (<1.2) Carbon Dioxide 34 H (22-30) mmol/L BUN 22 H (9-20) mg/dL
[2024-10-13] MEDS ORDERED: ceFAZolin 2 GM in DEXTROSE 5% IN WATER 50 ML IVPB SCH (08:00)
--- NOTE | 2024-10-13 10:30 | P.DS ---
Providers Date of admission: 10/07/24 15:37 Expected date of discharge: 10/12/24 Attending physician: Becki Singh Consults: 10/07/24 15:30 Consult Physician Routine Consulting Provider: Mariano Nguyen Consult Reason/Comments: chf Do you want consulting provider notified?: Yes Primary care physician: Luis Alberto Prince [facility] Course: Final diagnosis Congestive heart failure, acute exacerbation with acute on chronic systolic dysfunction, EF is 35 to 40% Moderate aortic regurgitation Bilateral scrotal swelling, secondary to CHF exacerbation, improving Hypertension Hyperlipidemia History of coronary artery disease with previous CABG GI prophylaxis DVT prophylaxis Full code Discharge disposition Patient is being discharged in a stable condition with guarded prognosis to [facility] with palliative care . Patient will follow-up with Dr. Prince in the outpatient setting upon discharge. Patient is to continue with current medications and outpatient follow-up with cardiology as scheduled. Total time taken is greater than 35 minutes. Hospital course This is a 84year-old male who was recently admitted with congestive heart failure acute exacerbation as well as testicular swelling likely secondary to CHF. Patient evaluated by cardiology making adjustments to medications diuresing well and will be discharged home. Patient has been instructed to elevate scrotum when having swelling and also lower extremities. Patient has been started on Farxiga and has been cleared by cardiology for outpatient follow-up. Please refer to cardiology consultation notes for further HPI. Patient reports he has home care in the home with palliative care. Currently no reports of chest pain, shortness of breath, or palpitations. Patient is afebrile. No reports of nausea or vomiting and patient is tolerating diet. Patient will be discharged home today. Guarded prognosis Physical exam: Gen: This is a 84-year-old male who is awake, alert and oriented x 3, well- developed, elderly appearing, thin built HEENT: Head is atraumatic, normocephalic. Pupils equal, round. Sclerae is anicteric. NECK: Supple. No JVD. No lymphadenopathy. No thyromegaly. LUNGS: Diminished breath sounds bilaterally otherwise clear to auscultation. No wheezes or rhonchi. No intercostal retractions. HEART: S1, S2 are muffled ABDOMEN: Soft. Thin bowel sounds are present. No masses. No tenderness. EXTREMITIES: No pedal edema. No calf tenderness. Improved lower extremity swelling NEUROLOGICAL: Patient is awake, alert and oriented x3. Cranial nerves 2 through 12 are grossly intact. Diffusely weak Please refer to medication reconciliation sheet for a list of medications. The impression and plan of care has been dictated by Adelaida Angel, Nurse Practitioner as directed. Dr. Francisco MD I have performed a history and examination and MDM of this patient, discussed the same with the dictator, and agree with the dictator's assessment and plan as written ,documented as a scribe. Based on total visit time, I have performed more than 50% of the visit. Patient Condition at Discharge: Fair Plan - Discharge Summary Discharge Rx Participant: Yes New Discharge Prescriptions: New Spironolactone [Aldactone] 25 mg PO DAILY #30 tab lisinopriL [Zestril] 5 mg PO BID #60 tab Cephalexin [Keflex] 500 mg PO Q8HR 3 Days #9 cap Aspirin 81 mg PO DAILY #30 tab Furosemide [Lasix] 40 mg PO BID@0900,1600 #60 tab Dapagliflozin Propanediol [Farxiga] 10 mg PO DAILY #30 tab Continue Metoprolol Tartrate [Lopressor] 50 mg PO BID HYDROcodone/APAP 10-325MG [[place] 10-325] 1 tab PO Q8HR Warfarin [Coumadin] 3.75 mg PO MOTUWETHFRSA@2100 Magnesium Glycinate 200mg 200 mg PO HS Gabapentin 300 mg PO HS Sennosides [Senokot] 25.8 mg PO HS Atorvastatin Calcium [Lipitor] 40 mg PO HS Warfarin [Coumadin] 7.5 mg PO HELTON@2100 Potassium Chloride ER [K-Dur 10] 10 meq PO DAILY Citalopram Hydrobromide [CeleXA] 10 mg PO DAILY Cholecalciferol (Vitamin D3) [Vitamin D3 (50 Mcg = 2000 Iu)] 50 mcg PO DAILY Discontinued lisinopriL [Zestril] 20 mg PO DAILY Furosemide [Lasix] 80 mg PO DAILY Discharge Medication List Atorvastatin Calcium [Lipitor] 40 mg PO HS 11/07/23 [History] Metoprolol Tartrate [Lopressor] 50 mg PO BID 11/07/23 [History] HYDROcodone/APAP 10-325MG [Bellaire 10-325] 1 tab PO Q8HR 11/09/23 [History] Cholecalciferol (Vitamin D3) [Vitamin D3 (50 Mcg = 2000 Iu)] 50 mcg PO DAILY 10/07/24 [History] Citalopram Hydrobromide [CeleXA] 10 mg PO DAILY 10/07/24 [History] Gabapentin 300 mg PO HS 10/07/24 [History] Magnesium Glycinate 200mg 200 mg PO HS 10/07/24 [History] Potassium Chloride ER [K-Dur 10] 10 meq PO DAILY 10/07/24 [History] Sennosides [Senokot] 25.8 mg PO HS 10/07/24 [History] Warfarin [Coumadin] 3.75 mg PO MOTUWETHFRSA@209910/07/24 [History] Warfarin [Coumadin] 7.5 mg PO HELTON@209910/07/24 [History] Aspirin 81 mg PO DAILY #30 tab 10/12/24 [Rx] Cephalexin [Keflex] 500 mg PO Q8HR 3 Days #9 cap 10/12/24 [Rx] Dapagliflozin Propanediol [Farxiga] 10 mg PO DAILY #30 tab 10/12/24 [Rx] Furosemide [Lasix] 40 mg PO BID@0900,1600 #60 tab 10/12/24 [Rx] Spironolactone [Aldactone] 25 mg PO DAILY #30 tab 10/12/24 [Rx] lisinopriL [Zestril] 5 mg PO BID #60 tab 10/12/24 [Rx] Follow up Appointment(s)/Referral(s): Raheem Valdez DO [STAFF PHYSICIAN] - 1 Week Luis Alberto Prince [Primary Care Provider] - 1-2 days Ambulatory/Diagnostic Orders: Basic Metabolic Panel [LAB.AMB] Time Frame: 3 Days, Location: None Selected Activity/Diet/Wound Care/Special Instructions: Activity limited until follow-up Follow-up with primary care provider on discharge Follow-up with cardiology outpatient Continue taking medications as prescribed If scrotum becomes swollen, recommend elevating on towels Use compression stockings and/or Juan Jose wraps from toes to knees and elevate lower extremities while at rest Repeat labs in 2 to 3 days to monitor kidney functions and electrolytes Discharge/Stand Alone Forms: Who Do I Call?, Help In The Home Discharge Disposition: HOME WITH HOME HEALTH SERVICES
[2024-10-13] MEDS ORDERED: WARFARIN 7.5 MG TAB PO SCH (18:00)
== END 2024-10-12 16:10 | disposition home health service (06) | DRG 291 ==
LOC: EC 13:08 → 3SCARD 15:36 → OBSVTOIN 15:37 → 3SCARD 16:56
PROVIDERS: ADMIT Hospitalist; ATTEND Hospitalist
DX: I11.0 Hypertensive heart disease with heart failure (principal); I50.23 Acute on chronic systolic (congestive) heart failure; R18.8 Other ascites; Z51.5 Encounter for palliative care; Z79.01 Long term (current) use of anticoagulants; I35.1 Nonrheumatic aortic (valve) insufficiency; I48.19 Other persistent atrial fibrillation; E78.5 Hyperlipidemia, unspecified; N50.89 Other specified disorders of the male genital organs; R79.1 Abnormal coagulation profile; I25.10 Atherosclerotic heart disease of native coronary artery without angina pectoris; Z95.1 Presence of aortocoronary bypass graft; Z95.2 Presence of prosthetic heart valve; Z79.899 Other long term (current) drug therapy; Z91.199 Patient's noncompliance with other medical treatment and regimen due to unspecified reason
CPT/HCPCS: 36415; 71045; 71046; 74176; 76870; 80048; 80053; 81003; 83735; 83880; 84145; 85025; 85027; 85610; 85730; 87636; 93005; 93306; 93923; 93975; 94760; 96374; 99291

== ENCOUNTER 2024-11-11 07:26 | Emergency (ER) | payer MEDICARE ==
--- NOTE | 2024-11-11 08:44 | XR ---
EXAMINATION TYPE: XR chest 2V DATE OF EXAM: 11/11/2024 CLINICAL INDICATION: Male, 84 years old with history of Cough/pain, TECHNIQUE: Frontal and lateral views of the chest are obtained. COMPARISON: Chest x-ray October 11, 2024 FINDINGS: Overlying sternal wires are redemonstrated. Cardiac valve surgical changes again seen. Pers istent cardiomegaly with atherosclerotic and ectatic thoracic aorta. Persistent small to moderate-siz e bilateral pleural effusions. IMPRESSION: Findings suggest CHF exacerbation/fluid overload state. Correlate clinically.. [facility], , 11/11/2024 8:42 AM
--- NOTE | 2024-11-11 08:47 | XR ---
EXAMINATION TYPE: XR foot limited bilateral DATE OF EXAM: 11/11/2024 CLINICAL INDICATION: Male, 84 years old with history of fall, injury, pain TECHNIQUE: Frontal and lateral images of the bilateral feet are obtained. COMPARISON: None FINDINGS: There is no acute displaced fracture evident in either foot. 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 Flexion in the toes is seen bilaterally. Punctate densiti es along the posterior aspect of the left foot are presumed product of old trauma. Possible 2 mm line ar foreign body plantar surface soft tissue left forefoot seen on lateral view. IMPRESSION: There is no acute displaced fracture in either foot. [facility], , 11/11/2024 8:45 AM
[2024-11-11 08:54] LABS: ALT 13 U/L (4-49); AST 26 U/L (17-59); African American GFR (CKD) 57 (>60 ml/min/1.73 sqM); Albumin 2.7 g/dL (3.5-5.0); Alkaline Phosphatase 79 U/L (38-126); Anion Gap 8 mmol/L; Blood Urea Nitrogen 53 mg/dL (9-20); Calcium 7.3 mg/dL (8.4-10.2); Carbon Dioxide 21 mmol/L (22-30); Chloride 112 mmol/L (98-107); Glucose 89 mg/dL (74-99); Lipase 64 U/L (23-300); Non-African American GFR(CKD) 49 (>60 ml/min/1.73 sqM); Potassium 3.7 mmol/L (3.5-5.1); Sodium 141 mmol/L (137-145); Total Bilirubin 1.4 mg/dL (0.2-1.3); Total Protein 6.1 g/dL (6.3-8.2)
[2024-11-11 09:01] LABS: Basophils # (A) 0.02 10*3/uL (0.00-0.10); Basophils % (A) 0.3 %; Eosinophils # (A) 0.02 10*3/uL (0.04-0.35); Eosinophils % (A) 0.3 %; HCT 31.3 % (39.6-50.0); HGB 9.9 g/dL (13.0-17.0); Lymphocytes # (A) 0.95 10*3/uL (0.90-5.00); MCHC 31.6 g/dL (32.0-37.0); MCV 85.3 fL (80.0-97.0); Mean Platelet Volume 10.7 fL (9.5-12.2); Monocytes # (A) 0.96 10*3/uL (0.20-1.00); Monocytes % (A) 13.2 %; Neutrophils # (A) 5.33 10*3/uL (1.80-7.70); Neutrophils % (A) 72.9 %; Platelet Count 128 10*3/uL (140-440); RBC 3.67 10*6/uL (4.40-5.60); RDW 20.6 % (11.5-14.5)
[2024-11-11 09:02] LABS: Appearance,Urine Clear (Clear); Bilirubin,Urine Negative (Negative); Blood,Urine Negative (Negative); Color,Urine Yellow; Glucose,Urine (UA) Negative (Negative); Ketones,Urine Negative (Negative); Leukocyte Esterase,Urine Negative (Negative); Nitrite,Urine Negative (Negative); PH, Urine 5.5 (5.0-8.0); Protein,Urine Trace (Negative); Specific Gravity,Urine 1.019 (1.001-1.035); Urobilinogen,Urine <2.0 mg/dL (<2.0)
[2024-11-11 09:03] LABS: NT-Pro-B-Type Natriuretic Pept 5540 pg/mL
--- NOTE | 2024-11-11 10:42 | ED ---
Altered Mental Status HPI - General Chief Complaint: Altered Mental Status Stated Complaint: UTI Time Seen by Provider: 11/11/24 07:35 Source: patient, EMS Mode of arrival: EMS Limitations: no limitations - History of Present Illness Initial Comments: 84-year-old male presents to the emergency department with altered mental status. His granddaughter is at bedside and helps provide the history. States that the patient is on palliative care due to congestive heart failure. He has been more confused over the past couple of days. They were concerned for urinary tract infection. He has been increasingly weak over the past 2 days. They are requesting evaluation to see if there is something they can do to improve the patient's condition somewhat. The patient cannot provide history. He appears to be alert and oriented x 3 at this time. Does admit to increasing weakness over the past several months and states that he has had a continued decline. Does report to some dysuria. No nausea or vomiting. No chest pain. No abdominal pain. No changes in his bowel habits. Patient notably has a deep cough which is also something chronic for him. He denies fevers or chills. No other alleviating, precipitating or modifying factors - Related Data Home Medications Medication Instructions Recorded Confirmed Atorvastatin Calcium [Lipitor] 40 mg PO HS 11/07/23 10/07/24 Metoprolol Tartrate [Lopressor] 50 mg PO BID 11/07/23 10/07/24 HYDROcodone/APAP 10-325MG [[place]ista 1 tab PO Q8HR 11/09/23 10/07/24 10-325] Cholecalciferol (Vitamin D3) 50 mcg PO DAILY 10/07/24 10/07/24 [Vitamin D3 (50 Mcg = 2000 Iu)] Citalopram Hydrobromide [CeleXA] 10 mg PO DAILY 10/07/24 10/07/24 Gabapentin 300 mg PO HS 10/07/24 10/07/24 Magnesium Glycinate 200mg 200 mg PO HS 10/07/24 10/07/24 Potassium Chloride ER [K-Dur 10] 10 meq PO DAILY 10/07/24 10/07/24 Sennosides [Senokot] 25.8 mg PO HS 10/07/24 10/07/24 Warfarin [Coumadin] 3.75 mg PO MOTUWETHFRSA@2100 04/03/25 04/03/25 Warfarin [Coumadin] 7.5 mg PO HELTON@2100 10/07/24 10/07/24 Previous Rx's Medication Instructions Recorded Aspirin 81 mg PO DAILY #30 tab 10/12/24 Cephalexin [Keflex] 500 mg PO Q8HR 3 Days #9 cap 10/12/24 Dapagliflozin Propanediol [Farxiga] 10 mg PO DAILY #30 tab 10/12/24 Furosemide [Lasix] 40 mg PO BID@0900,1600 #60 tab 10/12/24 Spironolactone [Aldactone] 25 mg PO DAILY #30 tab 10/12/24 lisinopriL [Zestril] 5 mg PO BID #60 tab 10/12/24 Doxycycline Hyclate 100 mg PO BID #20 cap 11/11/24 Allergies Allergy/AdvReac Type Severity Reaction Status Date / Time No Known Allergies Allergy Verified 11/11/24 07:38 Review of Systems ROS Statement: Those systems with pertinent positive or pertinent negative responses have been documented in the HPI. ROS Other: All systems not noted in ROS Statement are negative. Past Medical History Past Medical History: Hyperlipidemia, Hypertension Additional Past Medical History / Comment(s): CABGx4 2009, mechanical valvue Mitral pt is now on palliative care History of Any Multi-Drug Resistant Organisms: None Reported Past Surgical History: No Surgical Hx Reported Additional Past Surgical History / Comment(s): Brain tumor removal at age 21, artificial valve 2011, bypass 2009, Spinal shunt Past Anesthesia/Blood Transfusion Reactions: No Reported Reaction Past Psychological History: No Psychological Hx Reported Smoking Status: Never smoker Past Alcohol Use History: None Reported Past Drug Use History: None Reported General Exam Limitations: no limitations General appearance: alert, lethargic Head exam: Present: atraumatic, normocephalic, normal inspection Eye exam: Present: normal appearance, PERRL, EOMI. Absent: scleral icterus, conjunctival injection, periorbital swelling ENT exam: Present: mucous membranes dry Respiratory exam: Present: rales Cardiovascular Exam: Present: bradycardia GI/Abdominal exam: Present: soft, normal bowel sounds. Absent: distended, tenderness, guarding, rebound, rigid Course Vital Signs 11/11/24 11/11/24 11/11/24 07:30 09:05 10:27 Temperature 97.3 F L Pulse Rate 56 L 56 L 56 L Respiratory 18 18 18 Rate Blood Pressure 108/69 139/68 111/66 O2 Sat by Pulse 93 L 97 95 Oximetry 11/11/24 12:55 Temperature 97.8 F Pulse Rate 68 Respiratory 20 Rate Blood Pressure 119/68 O2 Sat by Pulse 95 Oximetry Medical Decision Making - Medical Decision Making Was pt. sent in by a medical professional or institution (CRIS Ordoñez, MEDICAL LAB TECHNICIAN, urgent care, hospital, or halfway...) When possible be specific @ -No Did you speak to anyone other than the patient for history (EMS, parent, family, police, friend...)? What history was obtained from this source @ -I spoke with the granddaughter for history Did you review nursing and triage notes (agree or disagree)? Why? @ -I reviewed and agree with nursing and triage notes Were old charts reviewed (outside hosp., previous admission, EMS record, old EKG, old radiological studies, urgent care reports/EKG's, halfway records)? Report findings @ -I reviewed the patient's discharge summary from October 2024 which demonstrates the patient was admitted for heart failure Differential Diagnosis (chest pain, altered mental status, abdominal pain women, abdominal pain men, vaginal bleeding, weakness, fever, dyspnea, syncope, headache, dizziness, GI bleed, back pain, seizure, CVA, palpatations, mental health, musculoskeletal)? @ -Differential Altered Mental Status: Hypoglycemia, DKA, hypercapnia, ETOH, overdose, CO poisoning, trauma, myxedema coma, HTN encephalopathy, infection, encephalitis, psychosis, intercranial hemorrhage, hepatic encephalopathy, meningitis, CVA, this is not meant to be an all-inclusive list EKG interpreted by me (3pts min.). @ -yes and demonstrates sinus rhythm with a rate of 56. QRS 125. QTc of 458. No acute ST segment elevations or depressions X-rays interpreted by me (1pt min.). @ -Yes which demonstrates concerning signs for congestive heart failure CT interpreted by me (1pt min.). @ -None done U/S interpreted by me (1pt. min.). @ -None done What testing was considered but not performed or refused? (CT, X-rays, U/S, labs)? Why? @ -None What meds were considered but not given or refused? Why? @ -None Did you discuss the management of the patient with other professionals (professionals i.e. CRIS Ordoñez, MEDICAL LAB TECHNICIAN, lab, RT, psych nurse, social services designee, tool keeper, teacher, chief growth officer, rehabilitation caseworker)? Give summary @ -No Was smoking cessation discussed for >3mins.? @ -No Was critical care preformed (if so, how long)? @ -No Were there social determinants of health that impacted care today? How? (Homelessness, low income, unemployed, alcoholism, drug addiction, transportation, low edu. Level, literacy, decrease access to med. care, long term, rehab)? @ -No Was there de-escalation of care discussed even if they declined (Discuss DNR or withdrawal of care, Hospice)? DNR status @ -No What co-morbidities impacted this encounter? (DM, HTN, Smoking, COPD, CAD, Can cer, CVA, ARF, Chemo, Hep., AIDS, mental health diagnosis, sleep apnea, morbid obesity)? @ -Congestive heart failure Was patient admitted / discharged? Hospital course, mention meds given and route, prescriptions, significant lab abnormalities, going to OR and other pertinent info. @ -Upon arrival patient seen and evaluated in room 17. Thorough history and physical exam was performed. IV was established and laboratory studies are conducted. Chest x-ray and foot x-ray were performed as patient has had multiple falls with notable bruising to his toes. Results are discussed with the granddaughter. I did recommend admission for congestive heart failure however granddaughter would like to take him home. Patient is on palliative care and they state that they have a hospice care appointment on Friday. As the patient is producing thick green sputum I did recommend covering with an ant ibiotic due to concern for infectious component of the cough. Granddaughter was agreeable to this. This is called into the pharmacy. Patient will follow-up with hospice concerns Undiagnosed new problem with uncertain prognosis? @ -No Drug Therapy requiring intensive monitoring for toxicity (Heparin, Nitro, Insulin, Cardizem)? @ -No Were any procedures done? @ -No Diagnosis/symptom? @ -Acute cough, acute tracheobronchitis, acute exacerbation of CHF Acute, or Chronic, or Acute on Chronic? @ -Acute on chronic Uncomplicated (without systemic symptoms) or Complicated (systemic symptoms)? @ -Complicated Side effects of treatment? @ -No Exacerbation, Progression, or Severe Exacerbation? @ -Yes Poses a threat to life or bodily function? How? (Chest pain, [place], [place], pneumonia, PE, COPD, DKA, ARF, appy, cholecystitis, CVA, Diverticulitis, Homicidal, Suicidal, threat to staff... and all critical care pts) @ -No - Lab Data Result diagrams: 11/11/24 08:05 11/11/24 08:05 Lab Results 11/11/24 11/11/24 11/11/24 Range/Units 08:05 08:05 08:05 WBC 7.30 (4.50-10.00) 10*3/uL RBC 3.67 L (4.40-5.60) 10*6/uL Hgb 9.9 L D (13.0-17.0) g/dL Hct 31.3 L (39.6-50.0) % MCV 85.3 (80.0-97.0) fL MCH 27.0 (27.0-32.0) pg MCHC 31.6 L (32.0-37.0) g/dL Plt Count 128 L (140-440) 10*3/uL MPV 10.7 (9.5-12.2) fL Immature Gran % (Auto) 0.3 % Neutrophils % 72.9 % Lymphocytes % 13.0 % Monocytes % 13.2 % Eosinophils % 0.3 % Basophils % 0.3 % Immature Gran # 0.02 (0.00-0.04) 10*3/uL Neutrophils # 5.33 (1.80-7.70) 10*3/uL Lymphocytes # 0.95 (0.90-5.00) 10*3/uL Monocytes # 0.96 (0.20-1.00) 10*3/uL Eosinophils # 0.02 L (0.04-0.35) 10*3/uL Basophils # 0.02 (0.00-0.10) 10*3/uL Sodium 141 (137-145) mmol/L Potassium 3.7 (3.5-5.1) mmol/L Chloride 112 H (98-107) mmol/L Carbon Dioxide 21 L (22-30) mmol/L Anion Gap 8 mmol/L BUN 53 H (9-20) mg/dL Creatinine 1.33 H (0.66-1.25) mg/dL Est GFR (CKD-EPI)AfAm 57 (>60 ml/min/1.73 sqM) Est GFR (CKD-EPI)NonAf 49 (>60 ml/min/1.73 sqM) Glucose 89 (74-99) mg/dL Plasma Lactic Acid Richie (0.7-2.0) mmol/L Calcium 7.3 L (8.4-10.2) mg/dL Total Bilirubin 1.4 H (0.2-1.3) mg/dL AST 26 (17-59) U/L ALT 13 (4-49) U/L Alkaline Phosphatase 79 (38-126) U/L NT-Pro-B Natriuret Pep 5540 pg/mL Total Protein 6.1 L (6.3-8.2) g/dL Albumin 2.7 L (3.5-5.0) g/dL Lipase 64 (23-300) U/L Urine Color Yellow Urine Appearance Clear (Clear) Urine pH 5.5 (5.0-8.0) Ur Specific [place] 1.019 (1.001-1.035) Urine Protein Trace H (Negative) Urine Glucose (UA) Negative (Negative) Urine Ketones Negative (Negative) Urine Blood Negative (Negative) Urine Nitrite Negative (Negative) Urine Bilirubin Negative (Negative) Urine Urobilinogen <2.0 (<2.0) mg/dL Ur Leukocyte Esterase Negative (Negative) 11/11/24 Range/Units 08:05 WBC (4.50-10.00) 10*3/uL RBC (4.40-5.60) 10*6/uL Hgb (13.0-17.0) g/dL Hct (39.6-50.0) % MCV (80.0-97.0) fL MCH (27.0-32.0) pg MCHC (32.0-37.0) g/dL Plt Count (140-440) 10*3/uL MPV (9.5-12.2) fL Immature Gran % (Auto) % Neutrophils % % Lymphocytes % % Monocytes % % Eosinophils % % Basophils % % Immature Gran # (0.00-0.04) 10*3/uL Neutrophils # (1.80-7.70) 10*3/uL Lymphocytes # (0.90-5.00) 10*3/uL Monocytes # (0.20-1.00) 10*3/uL Eosinophils # (0.04-0.35) 10*3/uL Basophils # (0.00-0.10) 10*3/uL Sodium (137-145) mmol/L Potassium (3.5-5.1) mmol/L Chloride (98-107) mmol/L Carbon Dioxide (22-30) mmol/L Anion Gap mmol/L BUN (9-20) mg/dL Creatinine (0.66-1.25) mg/dL Est GFR (CKD-EPI)AfAm (>60 ml/min/1.73 sqM) Est GFR (CKD-EPI)NonAf (>60 ml/min/1.73 sqM) Glucose (74-99) mg/dL Plasma Lactic Acid Richie 1.6 (0.7-2.0) mmol/L Calcium (8.4-10.2) mg/dL Total Bilirubin (0.2-1.3) mg/dL AST (17-59) U/L ALT (4-49) U/L Alkaline Phosphatase (38-126) U/L NT-Pro-B Natriuret Pep pg/mL Total Protein (6.3-8.2) g/dL Albumin (3.5-5.0) g/dL Lipase (23-300) U/L Urine Color Urine Appearance (Clear) Urine pH (5.0-8.0) Ur Specific [place] (1.001-1.035) Urine Protein (Negative) Urine Glucose (UA) (Negative) Urine Ketones (Negative) Urine Blood (Negative) Urine Nitrite (Negative) Urine Bilirubin (Negative) Urine Urobilinogen (<2.0) mg/dL Ur Leukocyte Esterase (Negative) Disposition Clinical Impression: Acute CHF (congestive heart failure), Tracheobronchitis, Weakness, Encephalopathy acute Disposition: HOME SELF-CARE Condition: Poor Instructions (If sedation given, give patient instructions): Heart Failure (ER) Additional Instructions: Please continue taking your medications as they are directed. Please take the a ntibiotics that I have prescribed. The antibiotic that was already sent to the pharmacy has been discontinued. Continue with your hospice consult. Return to the emergency department should you want any type of evaluation Prescriptions: Doxycycline Hyclate 100 mg PO BID #20 cap Is patient prescribed a controlled substance at d/c from ED?: No Referrals: Luis Alberto Prince [Primary Care Provider] - 1-2 days Time of Disposition: 10:42
[2024-11-11] MEDS: cefTRIAXone IN SWFI 1,000 MG/10 ML SYRINGE IVP STA (11:02)
[2024-11-11 12:56] VITALS: BP 119/68; PULSE 68; RESP 20; TEMP 97.8
== END 2024-11-11 12:56 | disposition home or self-care (01) ==
LOC: EC 07:26
DX: I11.0 Hypertensive heart disease with heart failure (principal); J40 Bronchitis, not specified as acute or chronic; G93.40 Encephalopathy, unspecified
CPT/HCPCS: 36415; 93005; 83880; 80053; 83605; 83690; 85025; 81003; 73620; 71046; 99285; 96374; J0696